=== PATIENT | male | born 1975 | race Caucasian/White ===

== ENCOUNTER 2016-08-14 17:42 | Emergency (ER) | payer OTHER ==
[~2016-08-14 17:42] MED LIST: /HCTZ25TA PO; /IPRA3SP; ALB2.5NEB INH; AMLO5TAB2 PO; ASPI81TA45 PO; ATIV0.5T3 PO; BACL10TA2 PO; BACTRIM DS PO; GABA300C2 PO; IPRA2IN INH; LEVO750T PO; LISI-538 PO; LISI5TAB PO; MEDR4PAK PO; META800T82 PO; NICO4GUM8 PO; NICO4LOZ8 MT; ONDA1TAB15 PO; PERCOCET PO; PRAV80TA2 PO; PRED10TA PO; PROAAER IN; Q PA PO; VALI10TA PO; VALI2TAB PO; ZITH250T PO; [UNRECOGNIZED DRUG - CODE] PO; [UNRECOGNIZED DRUG - CODE] SL; albuterol INH; prednisone PO
[2016-08-14] MEDS ORDERED: HYDROmorphone HCL 1 MG/ML SYRINGE (J1170) As Ordered ONE ×2 (19:55→21:52)
[2016-08-14 20:18] LABS: BASO % 0.4 % (0.0-1.0); EOS # 0.1 K/mm3 (0.0-0.50); EOS % 1.3 % (0.0-3.0); LARGE UNSTAINED CELL # 0.2 K/mm3 (0.0-0.4); LARGE UNSTAINED CELL % 2.5 % (0.0-4.0); LYMPH # 2.2 K/mm3 (1.5-4.5); LYMPH % 24.6 % (24.0-44.0); MEAN CORPUSCULAR HEMOGLOBIN 30.6 pg (27.0-33.0); MEAN CORPUSCULAR HGB CONC 33.4 g/dl (32.0-36.5); MEAN CORPUSCULAR VOLUME 91.5 fl (80.0-96.0); MONO # 0.5 K/mm3 (0.0-0.8); MONO % 5.9 % (0.0-5.0); NEUTROPHILS # 5.8 K/mm3 (1.8-7.7); NEUTROPHILS % 65.3 % (36.0-66.0); PLATELET COUNT, AUTOMATED 201 k/mm3 (150-450); RED CELL DISTRIBUTION WIDTH 13.3 % (11.5-14.5); WHITE BLOOD COUNT 8.9 K/mm3 (4.0-10.0)
[2016-08-14 20:33] LABS: ANION GAP 9 MEQ/L (8-16); BLOOD UREA NITROGEN 13 MG/DL (7-18); CALCIUM LEVEL 9.3 MG/DL (8.5-10.1); CARBON DIOXIDE LEVEL 28 MEQ/L (21-32); CHLORIDE LEVEL 103 MEQ/L (98-107); CREATININE FOR GFR 0.78 MG/DL (0.70-1.30); GLOMERULAR FILTRATION RATE > 60.0 (>60); GLUCOSE, FASTING 109 MG/DL (70-105); POTASSIUM SERUM 3.7 MEQ/L (3.5-5.1); SODIUM LEVEL 140 MEQ/L (136-145)
--- NOTE | 2016-08-14 20:33 | REP ---
AP PORTABLE CHEST: 08/14/2016 at 07:01 PM. Clinical history: Chest pain. Comparison: 04/16/2014 There is a right jugular indwelling catheter with tip in SVC. Lordotic projection limits evaluation of the posterior lower lung zones. Lung centeno are hyperinflated with some basilar fibrotic changes. Heart size magnified by low-level inflation. There is some venous hypertension, however. The underlying fibrosis makes early interstitial edema difficult to exclude. Chronic fibrotic changes are mild, but stable. There is no gross effusion or dense consolidation, but posterior lower lung zones are not well seen and there is some infrahilar increased density bilaterally likely some minor atelectatic change. Airway intact. Aortic calcified somewhat tortuous. Impression: 1. COPD and fibrosis with an indwelling right jugular central catheter. 2. Heart size magnified by portable technique and lordotic projection but there is some venous hypertension now and the underlying fibrosis makes early interstitial edema difficult to exclude. No moo edema, dense consolidation or visible effusion. Signed by Gonzalo Levine MD 08/15/2016 07:18 P
--- NOTE | 2016-08-14 21:36 | ECGEPIP ---
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
--- NOTE | 2016-08-14 23:51 | EDDOCDS ---
Physician Documentation [facility] Name: Jacoby Last Sr Age: 41 yrs Sex: Male : 1975 Arrival Date: 08/14/2016 Time: 17:42 Bed 9 Private MD: Henri Coley S Disposition: 08/14 23:31 I have independently interviewed and examined the patient, and I agree with the mm11 investigation, diagnosis and treatment plan as documented by the Resident. Disposition: 08/14/16 23:31 Discharged to Home/Self Care. Impression: Muscle weakness (generalized), Other chest pain, Chest pain, unspecified. - Condition is Stable. - Discharge Instructions: Nonspecific Chest Pain, Chest Wall Pain, Muscle Cramps and Spasms, Weakness, Chest Wall Pain, [id number], Nonspecific Chest Pain, [id number]-[id number], Muscle Cramps and Spasms, [id number], Weakness, [id number]. - Medication Reconciliation, Local Pharmacy Hours form. - Follow up: Madeleine Ni; When: 1 week; Reason: Recheck today's complaints, Continuance of care, To establish care. [facility]; When: Call to arrange an appointment; Reason: Recheck today's complaints, Continuance of care, To establish care. - Problem is an acute exacerbation. - Symptoms have improved. - Notes: Call Dr. Ni's office for follow up. Return to the ER, if your condition worsens. Call [facility] office to establish Primary Care Physician to follow up on today's visit as well as to establish care for general health. Historical: - Allergies: pcn; Ibuprofen; - Home Meds: 1. Neurontin 900 Oral tab bid (Last dose: 08/14/2016 08:00) 2. baclofen 10 mg Oral tab 4 times per day (Last dose: 08/14/2016 08:00) 3. Plavix 75 mg Oral tab 1 tab once daily (Last dose: 08/14/2016 08:00) 4. Xarelto 20 mg oral tab once daily (Last dose: 08/14/2016 08:00) 5. Nitrostat 0.6 mg SL subl every 5 minutes (Last dose: Unknown) 6. Valium 10 mg Oral tab 2 tab 2 times per day (Last dose: 08/14/2016 08:00) 7. meclizine 25 mg Oral chew once daily (Last dose: 08/14/2016 08:00) 8. Percocet 10-325 mg Oral tab every 6 hours (Last dose: 08/14/2016 08:00) 9. lisinopril-hydrochlorothiazide 20-12.5 mg oral tab once daily (Last dose: 08/14/2016 09:00) - PMHx: guinnain barre; CVA; DE; CAD; kidney disease; COPD; asthma; - PSHx: cardiac stent; right upper chest port; - Social history: Smoking status: Patient uses tobacco products, current every day smoker. Patient/guardian denies using alcohol, street drugs, No barriers to communication noted, The patient speaks fluent Albanian, Speaks appropriately for age, Patient uses alcohol only on a social basis. - Family history: Not pertinent. - : The pt / caregiver states he / she is on anticoagulants: Plavix. Xarelto Home medication list is obtained from the patient, family members. - Exposure Risk Screening:: None identified. Vital Signs: 17:45 BP 135 / 76; Pulse 99; Resp 17; Temp 97.1(T); Pulse Ox 99% on R/A; Weight 181.44 kg / lr2 400.01 lbs (R); Height 6 ft. 3 in. (190.50 cm); 18:16 Pulse 98 MON; Pulse Ox 96% ; cf2 18:16 BP 132 / 78; cf2 18:20 Pulse 96 MON; Pulse Ox 94% ; cf2 18:26 Pulse 96 MON; Pulse Ox 94% ; cf2 19:25 BP 132 / 78; Pulse 101; Resp 18; Temp 98.0; Pulse Ox 94% on R/A; Pain 8/10; cf2 19:55 BP 129 / 71; Pulse 104; Resp 18; Pulse Ox 94% on R/A; Pain 7/10; cf2 20:30 BP 133 / 82; Pulse 106; Resp 18; Pulse Ox 95% on R/A; Pain 5/10; cf2 21:00 BP 134 / 82; Pulse 101; Resp 18; Temp 98.0(O); Pulse Ox 94% ; cf2 21:30 BP 141 / 88; Pulse 99; Resp 18; Pulse Ox 94% on R/A; Pain 7/10; cf2 21:30 BP 132 / 77; Pulse 99; Resp 18; Temp 98.2; Pulse Ox 94% on R/A; Pain 8/10; cf2 23:37 BP 135 / 79; Pulse 94; Resp 18; Temp 98.0; Pulse Ox 95% on R/A; Pain 5/10; cf2 17:45 Body Mass Index 50.00 (181.44 kg, 190.50 cm) lr2 MDM: 18:01 ECG WITH READING ER PHYS+CARDIAG ordered. EDMS 18:46 Sales Inspector/Pulse Ox/q 30 min VS ordered. fg 18:46 IV Saline Lock ordered. fg 18:46 Rhythm Strip to chart ordered. fg 18:46 Undress patient appropriately for examination ordered. fg 18:47 B-Type Natiuretic Peptide Ordered. EDMS 18:47 Basic Metabolic Profile Ordered. EDMS 18:47 CBC with Diff Ordered. EDMS 18:47 Cardiac Injury Profile Ordered. EDMS 18:47 Troponin Ordered. EDMS 18:48 portable chest Ordered. EDMS 19:26 heparin 100units/mL flush (infusaport) 5 ml IVP once; flush first with 10mL of NS gk1 followed by heparin ordered. 19:45 Dilaudid - HYDROmorphone 1 mg IVP once ordered. gk1 20:38 REGULAR+DIET ordered. EDMS 20:43 Financial registration complete. gjb 20:54 Diazepam 1 mg IVP once ordered. gk1 20:55 [facility] Payment Agreement was scanned into [employer] App and attached to record. gjb 20:58 Basic Metabolic Profile Reviewed. gk1 20:58 CBC with Diff Reviewed. gk1 20:58 B-Type Natiuretic Peptide Reviewed. gk1 20:58 Cardiac Injury Profile Reviewed. gk1 20:58 Troponin Reviewed. gk1 21:40 Dilaudid - HYDROmorphone 1 mg IVP once ordered. mm11 21:40 Redraw CIP &Troponin (put time in details section) ordered. mm11 21:40 Repeat EKG (put time details section) ordered. mm11 21:49 Repeat EKG (put time details section) complete. jlm 21:49 Redraw CIP &Troponin (put time in details section) complete. jlm 21:49 CARDIAC INJURY PROFILE Ordered. EDMS 21:49 TROPONIN Ordered. EDMS 21:51 ELECTROCARDIOGRAM ADULT ordered. EDMS 22:54 CARDIAC INJURY PROFILE Reviewed. gk1 22:54 TROPONIN Reviewed. gk1 22:54 EKG-ADULT Reviewed. gk1 22:54 portable chest Reviewed. gk1 23:22 heparin 100units/mL flush (infusaport) 5 ml IVP once; flush first with 10mL of NS gk1 followed by heparin ordered. Administered Medications: 19:59 Drug: heparin 100units/mL flush (infusaport) 5 ml [heparin, porcine (PF) 10 unit/mL cf2 intravenous syringe (5 mL)] Route: IVP; Site: Implantable Access Device; 22:58 Follow up: Response: Pain is decreased cf2 19:59 Drug: Dilaudid - HYDROmorphone 1 mg [hydromorphone 1 mg/mL injection syringe (1 mL)] cf2 Route: IVP; Site: Implantable Access Device; 22:58 Follow up: Response: Pain is decreased cf2 21:00 Drug: Diazepam 1 mg [diazepam 5 mg/mL injection syringe (0.2 mL)] Route: IVP; Site: cf2 Implantable Access Device; 22:58 Follow up: Response: Pain is decreased cf2 21:50 Drug: Dilaudid - HYDROmorphone 1 mg [hydromorphone 1 mg/mL injection syringe (1 mL)] cf2 Route: IVP; Site: Implantable Access Device; 22:57 Follow up: Response: Pain is decreased cf2 23:24 Drug: heparin 100units/mL flush (infusaport) 5 ml [heparin flush (porcine) 100 unit/mL cf2 in 0.9 % sodium chloride IV kit (5 mL)] Route: IVP; Site: Implantable Access Device; Signatures: Dispatcher [employer] EDMS Edgardo Paz DO DO mm11 Arabella Marcano RN RN ttb Rula Lopez, Digital Specialist Unit Shelia Rutherford MD MD fg Beck, Gabriela gjb Familetti-Gonzalez, Christina, RN RN cf2 Ronaldo Heart DO DO gk1 The chart was reviewed and I authenticate all verbal orders and agree with the evaluation and treatment provided.Corrections: (The following items were deleted from the chart) 22:36 21:27 CT Head without contrast+CT ordered. EDMS EDMS Attachments: 20:55 [facility] Payment Agreement gjb MTDD
--- NOTE | 2016-08-14 23:52 | EDDOCDS ---
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 Also has chest pain. infected area noted to left chest/breast. Adult Sepsis Screening: The patient does not have new or worsening altered mentation. Patient's respiratory rate is less than 22. Systolic blood pressure is greater than 100. Patient has a qSOFA score of 0- Negative Sepsis Screen. Suicide/Homicide risk assessment- the patient denies having any suicidal and/or homicidal ideations and does not present with any other emotional, behavioral or mental health complaints. Status: Patient is not a service planner or dependent. Transition of care: patient was not received from another setting of care. 17:49 Acuity: BRIA Level 3 ttb 17:49 Method Of Arrival: Walkin/Carried/Asstd ttb Triage Assessment: 17:58 General: Appears in no apparent distress, well nourished, Behavior is appropriate for ttb age, cooperative, pleasant. Pain: Location: chest, back, legs, "deep tissue pain" Pain currently is 10 out of 10 on a pain scale. HIV screening NA for this visit Offered previously. Neurological: Level of Consciousness is awake, alert. Cardiovascular: Chest pain is described as Pain is 10 out of 10 on a pain scale. Respiratory: Airway is patent Respiratory effort is even, unlabored. Respiratory: Reports cough that is. GI: Reports nausea, vomiting. Derm: Skin is normal. Injury Description: No known injury. 23:39 Respiratory: Onset: The symptoms/episode began/occurred gradually. cf2 Historical: - Allergies: pcn; Ibuprofen; - Home Meds: 1. Neurontin 900 Oral tab bid (Last dose: 08/14/2016 08:00) 2. baclofen 10 mg Oral tab 4 times per day (Last dose: 08/14/2016 08:00) 3. Plavix 75 mg Oral tab 1 tab once daily (Last dose: 08/14/2016 08:00) 4. Xarelto 20 mg oral tab once daily (Last dose: 08/14/2016 08:00) 5. Nitrostat 0.6 mg SL subl every 5 minutes (Last dose: Unknown) 6. Valium 10 mg Oral tab 2 tab 2 times per day (Last dose: 08/14/2016 08:00) 7. meclizine 25 mg Oral chew once daily (Last dose: 08/14/2016 08:00) 8. Percocet 10-325 mg Oral tab every 6 hours (Last dose: 08/14/2016 08:00) 9. lisinopril-hydrochlorothiazide 20-12.5 mg oral tab once daily (Last dose: 08/14/2016 09:00) - PMHx: guinnain barre; CVA; MA; CAD; kidney disease; COPD; asthma; - PSHx: cardiac stent; right upper chest port; - Social history: Smoking status: Patient uses tobacco products, current every day smoker. Patient/guardian denies using alcohol, street drugs, No barriers to communication noted, The patient speaks fluent Nigerian, Speaks appropriately for age, Patient uses alcohol only on a social basis. - Family history: Not pertinent. - : The pt / caregiver states he / she is on anticoagulants: Plavix. Xarelto Home medication list is obtained from the patient, family members. - Exposure Risk Screening:: None identified. Screenin:14 Screening information is obtained from the patient. Fall risk: At risk due to ja5 wheelchair bound. Assistance ADL's: Requires assistance with meal preparation, this assistance is provided by family members, bathing, assistance is provided by family members, dressing, assistance is provided by family members, toileting, assistance is provided by family members, ambulation, assistance is provided by family members, housework, assistance is provided by family members, medication administration, assistance is provided by family members. Abuse/DV Screen: The patient / caregiver reports he/she is: not in a situation that causes fear, pain or injury. Nutritional screening: On no prescribed diet. Advance Directives: Currently, there is a health care proxy, Lianna June, goddaughter . There is no active DNR order. There is no living will. There is an active Power of [employer], Lianna June, goddaughter. home support is adequate. Assessment: 18:19 General: Appears in no apparent distress, Behavior is appropriate for age, cooperative. ja5 Pain: Location: right lateral anterior chest and left lateral anterior chest Pain currently is 10 out of 10 on a pain scale. Neurological: Oriented to person, place, time. Cardiovascular: Capillary refill < 3 seconds Heart tones S1 S2 present Rhythm is sinus rhythm No ectopy. Cardiovascular: Chest pain began 1 hour prior to arrival. Cardiovascular: Edema is 1+ to left ankle and right ankle pitting to left ankle and right ankle. Respiratory: Airway is patent Respiratory effort is even, unlabored, Breath sounds are clear bilaterally. Derm: Skin is intact, Skin is pink, warm & dry. 20:05 Adult Sepsis Screening: The patient does not have new or worsening altered mentation. cf2 Patient's respiratory rate is less than 22. Systolic blood pressure is greater than 100. Patient has a qSOFA score of 0- Negative Sepsis Screen. 21:32 Reassessment: Patient states symptoms have not improved. Patient states no relief in cf2 leg pain. MD made aware. Patient was able to eat a sandwich. . EENT: No deficits noted. GI: No deficits noted. : No deficits noted. Derm: Mid-sternal area with 3cm erythemic area. Patient states he "popped a pimple". Musculoskeletal: No deficits noted. Injury Description: No known injury. Vital Signs: 17:45 BP 135 / 76; Pulse 99; Resp 17; Temp 97.1(T); Pulse Ox 99% on R/A; Weight 181.44 kg lr2 (R); Height 6 ft. 3 in. (190.50 cm); 18:16 Pulse 98 MON; Pulse Ox 96% ; cf2 18:16 BP 132 / 78; cf2 18:20 Pulse 96 MON; Pulse Ox 94% ; cf2 18:26 Pulse 96 MON; Pulse Ox 94% ; cf2 19:25 BP 132 / 78; Pulse 101; Resp 18; Temp 98.0; Pulse Ox 94% on R/A; Pain 8/10; cf2 19:55 BP 129 / 71; Pulse 104; Resp 18; Pulse Ox 94% on R/A; Pain 7/10; cf2 20:30 BP 133 / 82; Pulse 106; Resp 18; Pulse Ox 95% on R/A; Pain 5/10; cf2 21:00 BP 134 / 82; Pulse 101; Resp 18; Temp 98.0(O); Pulse Ox 94% ; cf2 21:30 BP 141 / 88; Pulse 99; Resp 18; Pulse Ox 94% on R/A; Pain 7/10; cf2 21:30 BP 132 / 77; Pulse 99; Resp 18; Temp 98.2; Pulse Ox 94% on R/A; Pain 8/10; cf2 23:37 BP 135 / 79; Pulse 94; Resp 18; Temp 98.0; Pulse Ox 95% on R/A; Pain 5/10; cf2 17:45 Body Mass Index 50.00 (181.44 kg, 190.50 cm) lr2 Vitals: 17:45 Log In Time: August 14, 2016 at 17:42. lr2 ED Course: 17:44 Patient visited by Milady Tate. lr2 17:44 Henri Coley is Private Physician. lr2 17:44 Patient moved to Waiting lr2 17:45 Patient moved to Pre RCE lr2 17:52 Triage Initiated ttb 18:00 Christi Colbert,RAIN is Primary Nurse. ttb 18:00 Renetta Schmid,RAIN is Primary Nurse. ttb 18:00 Patient moved to 9 ttb 18:16 No procedures done that require assistance. cf2 18:19 EKG done. (by ED staff). Reviewed by Shelia Dela Cruz MD. dem1 18:22 Patient visited by Renetta Schmid,RAIN. 5 18:23 Patient visited by Ansley Alarcon. dem1 19:08 Primary Nurse role handed off by Christi Colbert,RAIN cf2 19:08 Gely Anderson,RN is Primary Nurse. cf2 19:08 Patient visited by Gely Anderson,RAIN. cf2 19:09 Ronaldo Heart DO is PHCP. gk1 19:09 Edgardo Paz DO is Attending Physician. gk1 19:10 Ronaldo Heart DO is PHCP. mm11 19:41 Patient visited by Gely Anderson,RAIN. cf2 20:00 B-Type Natiuretic Peptide Sent. cf2 20:00 Basic Metabolic Profile Sent. cf2 20:00 CBC with Diff Sent. cf2 20:00 Cardiac Injury Profile Sent. cf2 20:00 Troponin Sent. cf2 20:05 The patient / caregiver is instructed regarding the plan of care and ED course. Patient cf2 has correct armband on for positive identification. Placed in gown. Bed in low position. Call light in reach. Side rails up X 1. Side rails up X2. Adult w/ patient. mechanic senior on. Pulse ox on. Cardiac monitoring not applicable on this patient. Property :Personal belongings accompany Pt. Door closed. Noise minimized. Visitors limited. Lights dimmed. Moved to private room. Verbal reassurance given. Warm blanket given. Pillow given. Head of bed elevated. Diet: Patient is NPO. 20:05 Accessed using accessed w/ # 20 Esquivel needle, sterile technique, per hospital protocol. cf2 InfusaPort in patient's right chest wall. Clean & dry. Dressing intact. Good blood return. Flushes easily. 20:11 Patient visited by Gely Anderson RN. cf2 20:15 Patient visited by Gely Anderson RN. cf2 20:15 Patient visited by Ronaldo Heart DO. gk1 20:15 Patient visited by Ronaldo Heart DO. gk1 20:43 Patient visited by Gely Anderson RN. cf2 20:53 Patient visited by Ronaldo Heart DO. gk1 20:55 [facility] Payment Agreement was scanned into [employer] and attached to record. gjb 21:23 portable chest Returned. EDMS 21:32 Patient visited by Gely Anderson RN. cf2 21:32 Patient visited by Gely Anderson RN. cf2 22:01 TROPONIN Sent. cf2 22:01 CARDIAC INJURY PROFILE Sent. cf2 22:02 Patient visited by Gely Anderson RN. cf2 22:04 Patient visited by Ken Ratliff PCA. jmv 22:04 EKG done. (by ED staff). Reviewed by Edgardo Paz DO. jmv 22:17 EKG-ADULT Returned. EDMS 22:39 Patient visited by Gely Anderson RN. cf2 22:51 Patient visited by Gely Anderson RN. cf2 22:53 Patient visited by Ronaldo Heart DO. gk1 23:15 Patient visited by Ronaldo Heart DO. gk1 23:21 Patient visited by Ronaldo Heart DO. gk1 23:30 Madeleine Ni is Referral Physician. gk1 23:30 [facility] is Referral Physician. gk1 23:36 Patient visited by Gely Anderson RN. cf2 23:37 Discontinued Infusaport discontinued. Dressing placed. No bleeding noted. Patient cf2 tolerated procedure well. 23:50 Patient visited by Gely Anderosn RN. cf2 Administered Medications: 19:59 Drug: heparin 100units/mL flush (infusaport) 5 ml [heparin, porcine (PF) 10 unit/mL cf2 intravenous syringe (5 mL)] Route: IVP; Site: Implantable Access Device; 22:58 Follow up: Response: Pain is decreased cf2 19:59 Drug: Dilaudid - HYDROmorphone 1 mg [hydromorphone 1 mg/mL injection syringe (1 mL)] cf2 Route: IVP; Site: Implantable Access Device; 22:58 Follow up: Response: Pain is decreased cf2 21:00 Drug: Diazepam 1 mg [diazepam 5 mg/mL injection syringe (0.2 mL)] Route: IVP; Site: cf2 Implantable Access Device; 22:58 Follow up: Response: Pain is decreased cf2 21:50 Drug: Dilaudid - HYDROmorphone 1 mg [hydromorphone 1 mg/mL injection syringe (1 mL)] cf2 Route: IVP; Site: Implantable Access Device; 22:57 Follow up: Response: Pain is decreased cf2 23:24 Drug: heparin 100units/mL flush (infusaport) 5 ml [heparin flush (porcine) 100 unit/mL cf2 in 0.9 % sodium chloride IV kit (5 mL)] Route: IVP; Site: Implantable Access Device; Order Results: Lab Order: B-Type Natiuretic Peptide; SPEC'M 08/14/16 19:50 Test: BRAIN NATRIURETIC PEPTIDE; Value: 21.1; Range: <100; Units: PG/ML; Status: F Lab Order: Basic Metabolic Profile; SPEC08/14/16 19:50 Test: GLUCOSE, FASTING; Value: 109; Range: 70-105; Abnormal: Above high normal; Units: MG/DL; Status: F Test: BLOOD UREA NITROGEN; Value: 13; Range: 7-18; Units: MG/DL; Status: F Test: CREATININE FOR GFR; Value: 0.78; Range: 0.70-1.30; Units: MG/DL; Status: F Test: GLOMERULAR FILTRATION RATE; Value: > 60.0; Range: >60; Status: F Test: SODIUM LEVEL; Value: 140; Range: 136-145; Units: MEQ/L; Status: F Test: POTASSIUM SERUM; Value: 3.7; Range: 3.5-5.1; Units: MEQ/L; Status: F Test: CHLORIDE LEVEL; Value: 103; Range: 98-107; Units: MEQ/L; Status: F Test: CARBON DIOXIDE LEVEL; Value: 28; Range: 21-32; Units: MEQ/L; Status: F Test: ANION GAP; Value: 9; Range: 8-16; Units: MEQ/L; Status: F Test: CALCIUM LEVEL; Value: 9.3; Range: 8.5-10.1; Units: MG/DL; Status: F Test Note: ; Units are mL/min/1.73 m2 Chronic Kidney Disease Staging per NKF: Stage I & II GFR >=60 Normal to Mildly Decreased Stage III GFR 30-59 Moderately Decreased Stage IV GFR 15-29 Severely Decreased Stage V GFR <15 Very Little GFR Left ESRD GFR <15 on TRIM MOUNTER Lab Order: CBC with Diff; SPEC'08/14/16 19:50 Test: WHITE BLOOD COUNT; Value: 8.9; Range: 4.0-10.0; Units: K/mm3; Status: F Test: RED BLOOD COUNT; Value: 4.27; Range: 4.30-6.10; Abnormal: Below low normal; Units: M/mm3; Status: F Test: HEMOGLOBIN; Value: 13.1; Range: 14.0-18.0; Abnormal: Below low normal; Units: g/dl; Status: F Test: HEMATOCRIT; Value: 39.1; Range: 42.0-52.0; Abnormal: Below low normal; Units: %; Status: F Test: MEAN CORPUSCULAR VOLUME; Value: 91.5; Range: 80.0-96.0; Units: fl; Status: F Test: MEAN CORPUSCULAR HEMOGLOBIN; Value: 30.6; Range: 27.0-33.0; Units: pg; Status: F Test: MEAN CORPUSCULAR HGB CONC; Value: 33.4; Range: 32.0-36.5; Units: g/dl; Status: F Test: RED CELL DISTRIBUTION WIDTH; Value: 13.3; Range: 11.5-14.5; Units: %; Status: F Test: PLATELET COUNT, AUTOMATED; Value: 201; Range: 150-450; Units: k/mm3; Status: F Test: NEUTROPHILS %; Value: 65.3; Range: 36.0-66.0; Units: %; Status: F Test: LYMPH %; Value: 24.6; Range: 24.0-44.0; Units: %; Status: F Test: MONO %; Value: 5.9; Range: 0.0-5.0; Abnormal: Above high normal; Units: %; Status: F Test: EOS %; Value: 1.3; Range: 0.0-3.0; Units: %; Status: F Test: BASO %; Value: 0.4; Range: 0.0-1.0; Units: %; Status: F Test: LARGE UNSTAINED CELL %; Value: 2.5; Range: 0.0-4.0; Units: %; Status: F Test: NEUTROPHILS #; Value: 5.8; Range: 1.8-7.7; Units: K/mm3; Status: F Test: LYMPH #; Value: 2.2; Range: 1.5-4.5; Units: K/mm3; Status: F Test: MONO #; Value: 0.5; Range: 0.0-0.8; Units: K/mm3; Status: F Test: EOS #; Value: 0.1; Range: 0.0-0.50; Units: K/mm3; Status: F Test: BASO #; Value: 0.0; Range: 0.0-0.2; Units: K/mm3; Status: F Test: LARGE UNSTAINED CELL #; Value: 0.2; Range: 0.0-0.4; Units: K/mm3; Status: F Lab Order: Cardiac Injury Profile; [facility] 08/14/16 19:50 Test: CPK CREATINE PHOSPHOKINASE; Value: 85; Range: 39-308; Units: U/L; Status: F Test: CK-MB VALUE MASS; Value: 2.3; Range: 0.0-3.6; Units: NG/ML; Status: F Test: MB/CK RELATIVE INDEX; Value: 2.70; Range: < OR =4; Status: F Test Note: ; DIAGNOSIS CRITERIA MMB ng/ml Relative Index (RI) NON-AMI < or = 5 N/A [place]ONE > 5 < or = 4 AMI > 5 > 4 Lab Order: Troponin; [facility] 08/14/16 19:50 Test: TROPONIN I; Value: < 0.02; Range: < 0.10; Units: NG/ML; Status: F Test Note: ; Troponin I Reference Interval for [employer] LOCI: 99th Percentile= 0.00-0.045 ng/ml Risk Stratification: <= 0.10 ng/ml Decreased Risk for Adverse Clinical Events. 0.10-1.50 ng/ml Increased Risk for Adverse Clinical Events. Evaluation of additional criterion and/or repeat testing in 2-6 hours is suggested to rule out myocardial damage. >= 1.50 ng/ml Indicative of Myocardial Injury. Lab Order: CARDIAC INJURY PROFILE; [facility] 08/14/16 21:58 Test: CPK CREATINE PHOSPHOKINASE; Value: 88; Range: 39-308; Units: U/L; Status: F Test: CK-MB VALUE MASS; Value: 1.6; Range: 0.0-3.6; Units: NG/ML; Status: F Test: MB/CK RELATIVE INDEX; Value: 1.81; Range: < OR =4; Status: F Test Note: ; DIAGNOSIS CRITERIA MMB ng/ml Relative Index (RI) NON-AMI < or = 5 N/A [place] ZONE > 5 < or = 4 AMI > 5 > 4 Lab Order: TROPONIN; [facility] 08/14/16 21:58 Test: TROPONIN I; Value: < 0.02; Range: < 0.10; Units: NG/ML; Status: F Test Note: ; Troponin I Reference Interval for [employer] [place] LOCI: 99th Percentile= 0.00-0.045 ng/ml Risk Stratification: <= 0.10 ng/ml Decreased Risk for Adverse Clinical Events. 0.10-1.50 ng/ml Increased Risk for Adverse Clinical Events. Evaluation of additional criterion and/or repeat testing in 2-6 hours is suggested to rule out myocardial damage. >= 1.50 ng/ml Indicative of Myocardial Injury. Radiology Order: EKG-ADULT Test: EKG-ADULT REASON FOR EXAMINATION: Chest Pain; Stationary ECG Study; [facility] - ED; ; Test Date: 2016-08-14; Pat Name: JEAN PAUL FARAH SR Department:; Room: -; Gender: M Multimedia Services Manager: romain; : 1975 Requested By: SHELIA Storey; Order Number: [id number] Reading MD: Mallory Kearns; Measurements; Intervals [place]; Rate: 97 P: 46; WI: 163 QRS: 23; QRSD: 79 T: 43; QT: 338; QTc: 431; Interpretive Statements; SINUS RHYTHM; DELAYED R PROGRESSION; SIMILAR 03/05/14; Electronically Signed On 08-14-2016 21:36:46 EST by Mallory Kearns; Radiology Order: portable chest Test: portable chest REASON FOR EXAMINATION: Chest Pain; AP PORTABLE CHEST: 08/14/2016 at 07:01 PM.; ; Clinical history: Chest pain.; ; Comparison: 04/16/2014; ; There is a right jugular indwelling catheter with tip in SVC. Lordotic projection; limits evaluation of the posterior lower lung zones. Lung centeno are; hyperinflated with some basilar fibrotic changes. Heart size magnified by; low-level inflation. There is some venous hypertension, however. The underlying; fibrosis makes early interstitial edema difficult to exclude. Chronic fibrotic; changes are mild, but stable. There is no gross effusion or dense consolidation,; but posterior lower lung zones are not well seen and there is some infrahilar; increased density bilaterally likely some minor atelectatic change.; ; Airway intact. Aortic calcified somewhat tortuous.; ; Impression:; 1. COPD and fibrosis with an indwelling right jugular central catheter.; 2. Heart size magnified by portable technique and lordotic projection but there; is some venous hypertension now and the underlying fibrosis makes early; interstitial edema difficult to exclude. No moo edema, dense consolidation or; visible effusion.; ; ; ; ; Unreviewed; Outcome: 23:31 Discharge ordered by Provider. gk1 23:37 Discharge Assessment: Patient awake, alert and oriented x 3. No cognitive and/or cf2 functional deficits noted. Patient verbalized understanding of disposition instructions. Patient awake and alert. Oriented to person, place and time. patient administered narcotics - yes. The following High Risk Discharge criteria are identified: None. Discharged to home via wheelchair, with family. Condition: stable. Discharge instructions given to patient, Instructed on discharge instructions, follow up and referral plans. Demonstrated understanding of instructions. No special radiology studies were completed. 23:50 Patient left the ED. cf2 Signatures: Dispatcher [employer] EDMS Edgardo Paz, DO DO mm11 Ansley Alarcon dem1 Arabella Marcano, RN RN ttb Shiloh Mae Christina,RN RN cf2 Ken Ratliff, LABORER [employer] LABORER [employer] Ronaldo Baires, DO DO gk1 Renetta Schmid,RN RN Milady Griffin2 Corrections: (The following items were deleted from the chart) 18:05 17:49 Presenting complaint: Patient states: palpitations, weakness, legs tingling, and ttb hand tingling ---" I think I'm having another episode of guillaine barre". Also has chest pain. ttb MTDD
--- NOTE | 2016-08-15 08:53 | ECGEPIP ---
Stationary ECG Study [facility] Test Date: 2016-08-14 Pat Name: JEAN PAUL FARAH SR Department: Room: - Gender: M Phlebotomy Technologist: michelle : 1975 Requested By: EMERGENCY ROOM Order Number: [id number] Reading MD: Martha Esteves Measurements Intervals [place] Rate: 96 P: 55 [place]: 168 QRS: 25 QRSD: 81 T: 39 QT: 337 QTc: 426 Interpretive Statements NORMAL SINUS RHYTHM STABLE C/W 08/14/16 Electronically Signed On 08-15-2016 8:52:43 EST by Martha Esteves
--- NOTE | 2016-08-17 00:51 | EDDOCDS ---
Physician Documentation [facility] Name: Jacoby Last Sr Age: 41 yrs Sex: Male : 1975 Arrival Date: 08/14/2016 Time: 17:42 Bed 9 Private MD: Henri Coley S Disposition: 08/14 23:31 I have independently interviewed and examined the patient, and I agree with the mm11 investigation, diagnosis and treatment plan as documented by the Resident. Disposition: 08/14/16 23:31 Discharged to Home/Self Care. Impression: Muscle weakness (generalized), Other chest pain, Chest pain, unspecified. - Condition is Stable. - Discharge Instructions: Nonspecific Chest Pain, Chest Wall Pain, Muscle Cramps and Spasms, Weakness, Chest Wall Pain, [id number], Nonspecific Chest Pain, Qayb-[id number], Muscle Cramps and Spasms, [id number], Weakness, [id number]. - Medication Reconciliation, Local Pharmacy Hours form. - Follow up: Madeleine Ni; When: 1 week; Reason: Recheck today's complaints, Continuance of care, To establish care. [facility]; When: Call to arrange an appointment; Reason: Recheck today's complaints, Continuance of care, To establish care. - Problem is an acute exacerbation. - Symptoms have improved. - Notes: Call Dr. Ni's office for follow up. Return to the ER, if your condition worsens. Call [facility] office to establish Primary Care Physician to follow up on today's visit as well as to establish care for general health. Historical: - Allergies: pcn; Ibuprofen; - Home Meds: 1. Neurontin 900 Oral tab bid (Last dose: 08/14/2016 08:00) 2. baclofen 10 mg Oral tab 4 times per day (Last dose: 08/14/2016 08:00) 3. Plavix 75 mg Oral tab 1 tab once daily (Last dose: 08/14/2016 08:00) 4. Xarelto 20 mg oral tab once daily (Last dose: 08/14/2016 08:00) 5. Nitrostat 0.6 mg SL subl every 5 minutes (Last dose: Unknown) 6. Valium 10 mg Oral tab 2 tab 2 times per day (Last dose: 08/14/2016 08:00) 7. meclizine 25 mg Oral chew once daily (Last dose: 08/14/2016 08:00) 8. Percocet 10-325 mg Oral tab every 6 hours (Last dose: 08/14/2016 08:00) 9. lisinopril-hydrochlorothiazide 20-12.5 mg oral tab once daily (Last dose: 08/14/2016 09:00) - PMHx: guinnain barre; CVA; [place]; CAD; kidney disease; COPD; asthma; - PSHx: cardiac stent; right upper chest port; - Social history: Smoking status: Patient uses tobacco products, current every day smoker. Patient/guardian denies using alcohol, street drugs, No barriers to communication noted, The patient speaks fluent [place], Speaks appropriately for age, Patient uses alcohol only on a social basis. - Family history: Not pertinent. - : The pt / caregiver states he / she is on anticoagulants: Plavix. Xarelto Home medication list is obtained from the patient, family members. - Exposure Risk Screening:: None identified. Vital Signs: 17:45 BP 135 / 76; Pulse 99; Resp 17; Temp 97.1(T); Pulse Ox 99% on R/A; Weight 181.44 kg / lr2 400.01 lbs (R); Height 6 ft. 3 in. (190.50 cm); 18:16 Pulse 98 MON; Pulse Ox 96% ; cf2 18:16 BP 132 / 78; cf2 18:20 Pulse 96 MON; Pulse Ox 94% ; cf2 18:26 Pulse 96 MON; Pulse Ox 94% ; cf2 19:25 BP 132 / 78; Pulse 101; Resp 18; Temp 98.0; Pulse Ox 94% on R/A; Pain 8/10; cf2 19:55 BP 129 / 71; Pulse 104; Resp 18; Pulse Ox 94% on R/A; Pain 7/10; cf2 20:30 BP 133 / 82; Pulse 106; Resp 18; Pulse Ox 95% on R/A; Pain 5/10; cf2 21:00 BP 134 / 82; Pulse 101; Resp 18; Temp 98.0(O); Pulse Ox 94% ; cf2 21:30 BP 141 / 88; Pulse 99; Resp 18; Pulse Ox 94% on R/A; Pain 7/10; cf2 21:30 BP 132 / 77; Pulse 99; Resp 18; Temp 98.2; Pulse Ox 94% on R/A; Pain 8/10; cf2 23:37 BP 135 / 79; Pulse 94; Resp 18; Temp 98.0; Pulse Ox 95% on R/A; Pain 5/10; cf2 17:45 Body Mass Index 50.00 (181.44 kg, 190.50 cm) lr2 MDM: 18:01 ECG WITH READING ER PHYS+CARDIAG ordered. EDMS 18:46 Import Manager/Pulse Ox/q 30 min VS ordered. fg 18:46 IV Saline Lock ordered. fg 18:46 Rhythm Strip to chart ordered. fg 18:46 Undress patient appropriately for examination ordered. fg 18:47 B-Type Natiuretic Peptide Ordered. EDMS 18:47 Basic Metabolic Profile Ordered. EDMS 18:47 CBC with Diff Ordered. EDMS 18:47 Cardiac Injury Profile Ordered. EDMS 18:47 Troponin Ordered. EDMS 18:48 portable chest Ordered. EDMS 19:26 heparin 100units/mL flush (infusaport) 5 ml IVP once; flush first with 10mL of NS gk1 followed by heparin ordered. 19:45 Dilaudid - HYDROmorphone 1 mg IVP once ordered. gk1 20:38 REGULAR+DIET ordered. EDMS 20:43 Financial registration complete. gjb 20:54 Diazepam 1 mg IVP once ordered. gk1 20:55 [facility] Payment Agreement was scanned into [employer] and attached to record. gjb 20:58 Basic Metabolic Profile Reviewed. gk1 20:58 CBC with Diff Reviewed. gk1 20:58 B-Type Natiuretic Peptide Reviewed. gk1 20:58 Cardiac Injury Profile Reviewed. gk1 20:58 Troponin Reviewed. gk1 21:40 Dilaudid - HYDROmorphone 1 mg IVP once ordered. mm11 21:40 Redraw CIP &Troponin (put time in details section) ordered. mm11 21:40 Repeat EKG (put time details section) ordered. mm11 21:49 Repeat EKG (put time details section) complete. jlm 21:49 Redraw CIP &Troponin (put time in details section) complete. jlm 21:49 CARDIAC INJURY PROFILE Ordered. EDMS 21:49 TROPONIN Ordered. EDMS 21:51 ELECTROCARDIOGRAM ADULT ordered. EDMS 22:54 CARDIAC INJURY PROFILE Reviewed. gk1 22:54 TROPONIN Reviewed. gk1 22:54 EKG-ADULT Reviewed. gk1 22:54 portable chest Reviewed. gk1 23:22 heparin 100units/mL flush (infusaport) 5 ml IVP once; flush first with 10mL of NS gk1 followed by heparin ordered. 08/15 10:16 T-Sheet-- Draft Copy was scanned into [employer] and attached to record. 15:40 ECG/EKG was scanned into [employer] and attached to record. gb Administered Medications: 08/14 19:59 Drug: heparin 100units/mL flush (infusaport) 5 ml [heparin, porcine (PF) 10 unit/mL cf2 intravenous syringe (5 mL)] Route: IVP; Site: Implantable Access Device; 22:58 Follow up: Response: Pain is decreased cf2 19:59 Drug: Dilaudid - HYDROmorphone 1 mg [hydromorphone 1 mg/mL injection syringe (1 mL)] cf2 Route: IVP; Site: Implantable Access Device; 22:58 Follow up: Response: Pain is decreased cf2 21:00 Drug: Diazepam 1 mg [diazepam 5 mg/mL injection syringe (0.2 mL)] Route: IVP; Site: cf2 Implantable Access Device; 22:58 Follow up: Response: Pain is decreased cf2 21:50 Drug: Dilaudid - HYDROmorphone 1 mg [hydromorphone 1 mg/mL injection syringe (1 mL)] cf2 Route: IVP; Site: Implantable Access Device; 22:57 Follow up: Response: Pain is decreased cf2 23:24 Drug: heparin 100units/mL flush (infusaport) 5 ml [heparin flush (porcine) 100 unit/mL cf2 in 0.9 % sodium chloride IV kit (5 mL)] Route: IVP; Site: Implantable Access Device; Signatures: Dispatcher [employer] EDMS Delia James, Reg Reg gb Edgardo Paz, DO mm11 Arabella Marcano, RAIN RN ttb Rula Lopez, General Purchasing Agent Unit jlm Shelia Dela Cruz MD MD fg Beck, Gabriela gjb Familetti-Gonzalez, Christina, RN RN cf2 Una, Ronaldo, DO DO gk1 The chart was reviewed and I authenticate all verbal orders and agree with the evaluation and treatment provided.Corrections: (The following items were deleted from the chart) 22:36 21:27 CT Head without contrast+CT ordered. EDMS EDMS Attachments: 20:55 [facility] Payment Agreement gjb 08/15 10:16 T-Sheet-- Draft Copy gb 15:40 ECG/EKG gb Chart Complete MTDD
--- NOTE | 2016-08-17 00:51 | EDDOCDS ---
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 Also has chest pain. infected area noted to left chest/breast. Adult Sepsis Screening: The patient does not have new or worsening altered mentation. Patient's respiratory rate is less than 22. Systolic blood pressure is greater than 100. Patient has a qSOFA score of 0- Negative Sepsis Screen. Suicide/Homicide risk assessment- the patient denies having any suicidal and/or homicidal ideations and does not present with any other emotional, behavioral or mental health complaints. Status: Patient is not a auto servicer or dependent. Transition of care: patient was not received from another setting of care. 17:49 Acuity: BRIA Level 3 ttb 17:49 Method Of Arrival: Walkin/Carried/Asstd ttb Triage Assessment: 17:58 General: Appears in no apparent distress, well nourished, Behavior is appropriate for ttb age, cooperative, pleasant. Pain: Location: chest, back, legs, "deep tissue pain" Pain currently is 10 out of 10 on a pain scale. HIV screening NA for this visit Offered previously. Neurological: Level of Consciousness is awake, alert. Cardiovascular: Chest pain is described as Pain is 10 out of 10 on a pain scale. Respiratory: Airway is patent Respiratory effort is even, unlabored. Respiratory: Reports cough that is. GI: Reports nausea, vomiting. Derm: Skin is normal. Injury Description: No known injury. 23:39 Respiratory: Onset: The symptoms/episode began/occurred gradually. cf2 Historical: - Allergies: pcn; Ibuprofen; - Home Meds: 1. Neurontin 900 Oral tab bid (Last dose: 08/14/2016 08:00) 2. baclofen 10 mg Oral tab 4 times per day (Last dose: 08/14/2016 08:00) 3. Plavix 75 mg Oral tab 1 tab once daily (Last dose: 08/14/2016 08:00) 4. Xarelto 20 mg oral tab once daily (Last dose: 08/14/2016 08:00) 5. Nitrostat 0.6 mg SL subl every 5 minutes (Last dose: Unknown) 6. Valium 10 mg Oral tab 2 tab 2 times per day (Last dose: 08/14/2016 08:00) 7. meclizine 25 mg Oral chew once daily (Last dose: 08/14/2016 08:00) 8. Percocet 10-325 mg Oral tab every 6 hours (Last dose: 08/14/2016 08:00) 9. lisinopril-hydrochlorothiazide 20-12.5 mg oral tab once daily (Last dose: 08/14/2016 09:00) - PMHx: guinnain barre; CVA; [place]; CAD; kidney disease; COPD; asthma; - PSHx: cardiac stent; right upper chest port; - Social history: Smoking status: Patient uses tobacco products, current every day smoker. Patient/guardian denies using alcohol, street drugs, No barriers to communication noted, The patient speaks fluent [place], Speaks appropriately for age, Patient uses alcohol only on a social basis. - Family history: Not pertinent. - : The pt / caregiver states he / she is on anticoagulants: Plavix. Xarelto Home medication list is obtained from the patient, family members. - Exposure Risk Screening:: None identified. Screenin:14 Screening information is obtained from the patient. Fall risk: At risk due to ja5 wheelchair bound. Assistance ADL's: Requires assistance with meal preparation, this assistance is provided by family members, bathing, assistance is provided by family members, dressing, assistance is provided by family members, toileting, assistance is provided by family members, ambulation, assistance is provided by family members, housework, assistance is provided by family members, medication administration, assistance is provided by family members. Abuse/DV Screen: The patient / caregiver reports he/she is: not in a situation that causes fear, pain or injury. Nutritional screening: On no prescribed diet. Advance Directives: Currently, there is a health care proxy, Lianna June, goddaughter . There is no active DNR order. There is no living will. There is an active Power of Personal Driver, Lianna June, goddaughter. home support is adequate. Assessment: 18:19 General: Appears in no apparent distress, Behavior is appropriate for age, cooperative. ja5 Pain: Location: right lateral anterior chest and left lateral anterior chest Pain currently is 10 out of 10 on a pain scale. Neurological: Oriented to person, place, time. Cardiovascular: Capillary refill < 3 seconds Heart tones S1 S2 present Rhythm is sinus rhythm No ectopy. Cardiovascular: Chest pain began 1 hour prior to arrival. Cardiovascular: Edema is 1+ to left ankle and right ankle pitting to left ankle and right ankle. Respiratory: Airway is patent Respiratory effort is even, unlabored, Breath sounds are clear bilaterally. Derm: Skin is intact, Skin is pink, warm & dry. 20:05 Adult Sepsis Screening: The patient does not have new or worsening altered mentation. cf2 Patient's respiratory rate is less than 22. Systolic blood pressure is greater than 100. Patient has a qSOFA score of 0- Negative Sepsis Screen. 21:32 Reassessment: Patient states symptoms have not improved. Patient states no relief in cf2 leg pain. MD made aware. Patient was able to eat a sandwich. . EENT: No deficits noted. GI: No deficits noted. : No deficits noted. Derm: Mid-sternal area with 3cm erythemic area. Patient states he "popped a pimple". Musculoskeletal: No deficits noted. Injury Description: No known injury. Vital Signs: 17:45 BP 135 / 76; Pulse 99; Resp 17; Temp 97.1(T); Pulse Ox 99% on R/A; Weight 181.44 kg lr2 (R); Height 6 ft. 3 in. (190.50 cm); 18:16 Pulse 98 MON; Pulse Ox 96% ; cf2 18:16 BP 132 / 78; cf2 18:20 Pulse 96 MON; Pulse Ox 94% ; cf2 18:26 Pulse 96 MON; Pulse Ox 94% ; cf2 19:25 BP 132 / 78; Pulse 101; Resp 18; Temp 98.0; Pulse Ox 94% on R/A; Pain 8/10; cf2 19:55 BP 129 / 71; Pulse 104; Resp 18; Pulse Ox 94% on R/A; Pain 7/10; cf2 20:30 BP 133 / 82; Pulse 106; Resp 18; Pulse Ox 95% on R/A; Pain 5/10; cf2 21:00 BP 134 / 82; Pulse 101; Resp 18; Temp 98.0(O); Pulse Ox 94% ; cf2 21:30 BP 141 / 88; Pulse 99; Resp 18; Pulse Ox 94% on R/A; Pain 7/10; cf2 21:30 BP 132 / 77; Pulse 99; Resp 18; Temp 98.2; Pulse Ox 94% on R/A; Pain 8/10; cf2 23:37 BP 135 / 79; Pulse 94; Resp 18; Temp 98.0; Pulse Ox 95% on R/A; Pain 5/10; cf2 17:45 Body Mass Index 50.00 (181.44 kg, 190.50 cm) lr2 Vitals: 17:45 Log In Time: August 14, 2016 at 17:42. lr2 ED Course: 17:44 Patient visited by Milady Tate. lr2 17:44 Henri Coley is Private Physician. lr2 17:44 Patient moved to Waiting lr2 17:45 Patient moved to Pre RCE lr2 17:52 Triage Initiated ttb 18:00 Christi Colbert,RAIN is Primary Nurse. ttb 18:00 Renetta Schmid,RAIN is Primary Nurse. ttb 18:00 Patient moved to 9 ttb 18:16 No procedures done that require assistance. cf2 18:19 EKG done. (by ED staff). Reviewed by Shelia Dela Cruz MD. dem1 18:22 Patient visited by Renetta Schmid,RAIN. 5 18:23 Patient visited by Ansley Alarcon. dem1 19:08 Primary Nurse role handed off by Christi Colbert,RAIN cf2 19:08 Gely Anderson,RN is Primary Nurse. cf2 19:08 Patient visited by Gely Anderson,RAIN. cf2 19:09 Ronaldo Heart DO is PHCP. gk1 19:09 Edgardo Paz DO is Attending Physician. gk1 19:10 Ronaldo Heart DO is PHCP. mm11 19:41 Patient visited by Gely Anderson,RAIN. cf2 20:00 B-Type Natiuretic Peptide Sent. cf2 20:00 Basic Metabolic Profile Sent. cf2 20:00 CBC with Diff Sent. cf2 20:00 Cardiac Injury Profile Sent. cf2 20:00 Troponin Sent. cf2 20:05 The patient / caregiver is instructed regarding the plan of care and ED course. Patient cf2 has correct armband on for positive identification. Placed in gown. Bed in low position. Call light in reach. Side rails up X 1. Side rails up X2. Adult w/ patient. press manager on. Pulse ox on. Cardiac monitoring not applicable on this patient. Property :Personal belongings accompany Pt. Door closed. Noise minimized. Visitors limited. Lights dimmed. Moved to private room. Verbal reassurance given. Warm blanket given. Pillow given. Head of bed elevated. Diet: Patient is NPO. 20:05 Accessed using accessed w/ # 20 Esquivel needle, sterile technique, per hospital protocol. cf2 InfusaPort in patient's right chest wall. Clean & dry. Dressing intact. Good blood return. Flushes easily. 20:11 Patient visited by Gely Anderson RN. cf2 20:15 Patient visited by Gely Anderson RN. cf2 20:15 Patient visited by Ronaldo Heart DO. gk1 20:15 Patient visited by Ronaldo Heart DO. gk1 20:43 Patient visited by Gely Anderson RN. cf2 20:53 Patient visited by Ronaldo Heart DO. gk1 20:55 [facility] Payment Agreement was scanned into [employer] and attached to record. gjb 21:23 portable chest Returned. EDMS 21:32 Patient visited by Gely Anderson RN. cf2 21:32 Patient visited by Gely Anderson RN. cf2 22:01 TROPONIN Sent. cf2 22:01 CARDIAC INJURY PROFILE Sent. cf2 22:02 Patient visited by Gely Anderson RN. cf2 22:04 Patient visited by Ken Ratliff PCA. jmv 22:04 EKG done. (by ED staff). Reviewed by Edgardo Paz DO. jmv 22:17 EKG-ADULT Returned. EDMS 22:39 Patient visited by Gely Anderson RN. cf2 22:51 Patient visited by Gely Anderson RN. cf2 22:53 Patient visited by Ronaldo Heart DO. gk1 23:15 Patient visited by Ronaldo Heart DO. gk1 23:21 Patient visited by Ronaldo Heart DO. gk1 23:30 Madeleine Ni is Referral Physician. gk1 23:30 [facility] is Referral Physician. gk1 23:36 Patient visited by Gely Anderson RN. cf2 23:37 Discontinued Infusaport discontinued. Dressing placed. No bleeding noted. Patient cf2 tolerated procedure well. 23:50 Patient visited by Gely Anderson RN. cf2 08/15 09:17 ELECTROCARDIOGRAM ADULT Returned. EDMS 10:16 T-Sheet-- Draft Copy was scanned into [employer] and attached to record. gb 15:40 ECG/EKG was scanned into [employer] and attached to record. gb 19:39 portable chest Returned. EDMS Administered Medications: 08/14 19:59 Drug: heparin 100units/mL flush (infusaport) 5 ml [heparin, porcine (PF) 10 unit/mL cf2 intravenous syringe (5 mL)] Route: IVP; Site: Implantable Access Device; 22:58 Follow up: Response: Pain is decreased cf2 19:59 Drug: Dilaudid - HYDROmorphone 1 mg [hydromorphone 1 mg/mL injection syringe (1 mL)] cf2 Route: IVP; Site: Implantable Access Device; 22:58 Follow up: Response: Pain is decreased cf2 21:00 Drug: Diazepam 1 mg [diazepam 5 mg/mL injection syringe (0.2 mL)] Route: IVP; Site: cf2 Implantable Access Device; 22:58 Follow up: Response: Pain is decreased cf2 21:50 Drug: Dilaudid - HYDROmorphone 1 mg [hydromorphone 1 mg/mL injection syringe (1 mL)] cf2 Route: IVP; Site: Implantable Access Device; 22:57 Follow up: Response: Pain is decreased cf2 23:24 Drug: heparin 100units/mL flush (infusaport) 5 ml [heparin flush (porcine) 100 unit/mL cf2 in 0.9 % sodium chloride IV kit (5 mL)] Route: IVP; Site: Implantable Access Device; Order Results: Lab Order: B-Type Natiuretic Peptide; SPEC08/14/16 19:50 Test: BRAIN NATRIURETIC PEPTIDE; Value: 21.1; Range: <100; Units: PG/ML; Status: F Lab Order: Basic Metabolic Profile; SPEC08/14/16 19:50 Test: GLUCOSE, FASTING; Value: 109; Range: 70-105; Abnormal: Above high normal; Units: MG/DL; Status: F Test: BLOOD UREA NITROGEN; Value: 13; Range: 7-18; Units: MG/DL; Status: F Test: CREATININE FOR GFR; Value: 0.78; Range: 0.70-1.30; Units: MG/DL; Status: F Test: GLOMERULAR FILTRATION RATE; Value: > 60.0; Range: >60; Status: F Test: SODIUM LEVEL; Value: 140; Range: 136-145; Units: MEQ/L; Status: F Test: POTASSIUM SERUM; Value: 3.7; Range: 3.5-5.1; Units: MEQ/L; Status: F Test: CHLORIDE LEVEL; Value: 103; Range: 98-107; Units: MEQ/L; Status: F Test: CARBON DIOXIDE LEVEL; Value: 28; Range: 21-32; Units: MEQ/L; Status: F Test: ANION GAP; Value: 9; Range: 8-16; Units: MEQ/L; Status: F Test: CALCIUM LEVEL; Value: 9.3; Range: 8.5-10.1; Units: MG/DL; Status: F Test Note: ; Units are mL/min/1.73 m2 Chronic Kidney Disease Staging per NKF: Stage I & II GFR >=60 Normal to Mildly Decreased Stage III GFR 30-59 Moderately Decreased Stage IV GFR 15-29 Severely Decreased Stage V GFR <15 Very Little GFR Left ESRD GFR <15 on TAVERN KEEPER Lab Order: CBC with Diff; SPEC08/14/16 19:50 Test: WHITE BLOOD COUNT; Value: 8.9; Range: 4.0-10.0; Units: K/mm3; Status: F Test: RED BLOOD COUNT; Value: 4.27; Range: 4.30-6.10; Abnormal: Below low normal; Units: M/mm3; Status: F Test: HEMOGLOBIN; Value: 13.1; Range: 14.0-18.0; Abnormal: Below low normal; Units: g/dl; Status: F Test: HEMATOCRIT; Value: 39.1; Range: 42.0-52.0; Abnormal: Below low normal; Units: %; Status: F Test: MEAN CORPUSCULAR VOLUME; Value: 91.5; Range: 80.0-96.0; Units: fl; Status: F Test: MEAN CORPUSCULAR HEMOGLOBIN; Value: 30.6; Range: 27.0-33.0; Units: pg; Status: F Test: MEAN CORPUSCULAR HGB CONC; Value: 33.4; Range: 32.0-36.5; Units: g/dl; Status: F Test: RED CELL DISTRIBUTION WIDTH; Value: 13.3; Range: 11.5-14.5; Units: %; Status: F Test: PLATELET COUNT, AUTOMATED; Value: 201; Range: 150-450; Units: k/mm3; Status: F Test: NEUTROPHILS %; Value: 65.3; Range: 36.0-66.0; Units: %; Status: F Test: LYMPH %; Value: 24.6; Range: 24.0-44.0; Units: %; Status: F Test: MONO %; Value: 5.9; Range: 0.0-5.0; Abnormal: Above high normal; Units: %; Status: F Test: EOS %; Value: 1.3; Range: 0.0-3.0; Units: %; Status: F Test: BASO %; Value: 0.4; Range: 0.0-1.0; Units: %; Status: F Test: LARGE UNSTAINED CELL %; Value: 2.5; Range: 0.0-4.0; Units: %; Status: F Test: NEUTROPHILS #; Value: 5.8; Range: 1.8-7.7; Units: K/mm3; Status: F Test: LYMPH #; Value: 2.2; Range: 1.5-4.5; Units: K/mm3; Status: F Test: MONO #; Value: 0.5; Range: 0.0-0.8; Units: K/mm3; Status: F Test: EOS #; Value: 0.1; Range: 0.0-0.50; Units: K/mm3; Status: F Test: BASO #; Value: 0.0; Range: 0.0-0.2; Units: K/mm3; Status: F Test: LARGE UNSTAINED CELL #; Value: 0.2; Range: 0.0-0.4; Units: K/mm3; Status: F Lab Order: Cardiac Injury Profile; [facility] 08/14/16 19:50 Test: CPK CREATINE PHOSPHOKINASE; Value: 85; Range: 39-308; Units: U/L; Status: F Test: CK-MB VALUE MASS; Value: 2.3; Range: 0.0-3.6; Units: NG/ML; Status: F Test: MB/CK RELATIVE INDEX; Value: 2.70; Range: < OR =4; Status: F Test Note: ; DIAGNOSIS CRITERIA MMB ng/ml Relative Index (RI) NON-AMI < or = 5 N/A VERG[place] ZONE > 5 < or = 4 AMI > 5 > 4 Lab Order: Troponin; [facility] 08/14/16 19:50 Test: TROPONIN I; Value: < 0.02; Range: < 0.10; Units: NG/ML; Status: F Test Note: ; Troponin I Reference Interval for 1-800-[facility]CTORS LOCI: 99th Percentile= 0.00-0.045 ng/ml Risk Stratification: <= 0.10 ng/ml Decreased Risk for Adverse Clinical Events. 0.10-1.50 ng/ml Increased Risk for Adverse Clinical Events. Evaluation of additional criterion and/or repeat testing in 2-6 hours is suggested to rule out myocardial damage. >= 1.50 ng/ml Indicative of Myocardial Injury. Lab Order: CARDIAC INJURY PROFILE; [facility] 08/14/16 21:58 Test: CPK CREATINE PHOSPHOKINASE; Value: 88; Range: 39-308; Units: U/L; Status: F Test: CK-MB VALUE MASS; Value: 1.6; Range: 0.0-3.6; Units: NG/ML; Status: F Test: MB/CK RELATIVE INDEX; Value: 1.81; Range: < OR =4; Status: F Test Note: ; DIAGNOSIS CRITERIA MMB ng/ml Relative Index (RI) NON-AMI < or = 5 N/A VERGARA ZONE > 5 < or = 4 AMI > 5 > 4 Lab Order: TROPONIN; SPEC'M 08/14/16 21:58 Test: TROPONIN I; Value: < 0.02; Range: < 0.10; Units: NG/ML; Status: F Test Note: ; Troponin I Reference Interval for [employer] [place] LOCI: 99th Percentile= 0.00-0.045 ng/ml Risk Stratification: <= 0.10 ng/ml Decreased Risk for Adverse Clinical Events. 0.10-1.50 ng/ml Increased Risk for Adverse Clinical Events. Evaluation of additional criterion and/or repeat testing in 2-6 hours is suggested to rule out myocardial damage. >= 1.50 ng/ml Indicative of Myocardial Injury. Radiology Order: EKG-ADULT Test: EKG-ADULT REASON FOR EXAMINATION: Chest Pain; Stationary ECG Study; [facility] - ED; ; Test Date: 2016-08-14; Pat Name: JEAN PAUL FARAH Department:; Room: -; Gender: M Degreaser: dm; : 1975 Requested By: SHELIA Storey; Order Number: [id number] Reading MD: Mallory Kearns; Measurements; Intervals [place]; Rate: 97 P: 46; PA: 163 QRS: 23; QRSD: 79 T: 43; QT: 338; QTc: 431; Interpretive Statements; SINUS RHYTHM; DELAYED R PROGRESSION; SIMILAR 03/05/14; Electronically Signed On 08-14-2016 21:36:46 EST by Mallory Kearns; Radiology Order: portable chest Test: portable chest REASON FOR EXAMINATION: Chest Pain; AP PORTABLE CHEST: 08/14/2016 at 07:01 PM.; ; Clinical history: Chest pain.; ; Comparison: 04/16/2014; ; There is a right jugular indwelling catheter with tip in SVC. Lordotic projection; limits evaluation of the posterior lower lung zones. Lung centeno are; hyperinflated with some basilar fibrotic changes. Heart size magnified by; low-level inflation. There is some venous hypertension, however. The underlying; fibrosis makes early interstitial edema difficult to exclude. Chronic fibrotic; changes are mild, but stable. There is no gross effusion or dense consolidation,; but posterior lower lung zones are not well seen and there is some infrahilar; increased density bilaterally likely some minor atelectatic change.; ; Airway intact. Aortic calcified somewhat tortuous.; ; Impression:; ; 1. COPD and fibrosis with an indwelling right jugular central catheter.; ; 2. Heart size magnified by portable technique and lordotic projection but there; is some venous hypertension now and the underlying fibrosis makes early; interstitial edema difficult to exclude. No moo edema, dense consolidation or; visible effusion.; ; ; Signed by; Gonzalo Levine MD 08/15/2016 07:18 P; Radiology Order: ELECTROCARDIOGRAM ADULT Test: ELECTROCARDIOGRAM ADULT REASON FOR EXAMINATION: REPEAT; Stationary ECG Study; [facility]; ; Test Date: 2016-08-14; Pat Name: JEAN PAUL FARAH SR Department:; Room: -; Gender: M Degreaser: michelle; : 1975 Requested By: EMERGENCY ROOM; Order Number: [id number] Reading MD: Martha Esteves; Measurements; Intervals [place]; Rate: 96 P: 55; PA: 168 QRS: 25; QRSD: 81 T: 39; QT: 337; QTc: 426; Interpretive Statements; NORMAL SINUS RHYTHM; STABLE C/W 08/14/16; Electronically Signed On 08-15-2016 8:52:43 EST by Martha Esteves; Outcome: 23:31 Discharge ordered by Provider. gk1 23:37 Discharge Assessment: Patient awake, alert and oriented x 3. No cognitive and/or cf2 functional deficits noted. Patient verbalized understanding of disposition instructions. Patient awake and alert. Oriented to person, place and time. patient administered narcotics - yes. The following High Risk Discharge criteria are identified: None. Discharged to home via wheelchair, with family. Condition: stable. Discharge instructions given to patient, Instructed on discharge instructions, follow up and referral plans. Demonstrated understanding of instructions. No special radiology studies were completed. 23:50 Patient left the ED. cf2 Signatures: Dispatcher [employer] EDMS Delia James, Edgardo Hernandes DO DO mm11 Ansley Alarcon dem1 Arabella Marcano RN RN Shiloh Hoskins Christina,RN RN cf2 Ken Ratliff, HELIARC WELDER HELIARC WELDER jmv Ronaldo Heart, DO DO gk1 Renetta SchmidRN RN ja5 Milady Tate2 Corrections: (The following items were deleted from the chart) 18:05 17:49 Presenting complaint: Patient states: palpitations, weakness, legs tingling, and ttb hand tingling ---" I think I'm having another episode of guillaine barre". Also has chest pain. ttb Chart Complete MTDD
--- NOTE | 2016-08-17 00:51 | EDDOCDS ---
Physician Documentation [facility] Name: Jacoby Last Sr Age: 41 yrs Sex: Male : 1975 Arrival Date: 08/14/2016 Time: 17:42 Bed 9 Private MD: Henri Coley S Disposition: 08/14 23:31 I have independently interviewed and examined the patient, and I agree with the mm11 investigation, diagnosis and treatment plan as documented by the Resident. Disposition: 08/14/16 23:31 Discharged to Home/Self Care. Impression: Muscle weakness (generalized), Other chest pain, Chest pain, unspecified. - Condition is Stable. - Discharge Instructions: Nonspecific Chest Pain, Chest Wall Pain, Muscle Cramps and Spasms, Weakness, Chest Wall Pain, Rdpv-[id number]-Gchq, Nonspecific Chest Pain, Xpva-vq-Yroj, Muscle Cramps and Spasms, Ioqh-vp-Nket, Weakness, Iqdf-fw-Qcln. - Medication Reconciliation, Local Pharmacy Hours form. - Follow up: Madeleine Ni; When: 1 week; Reason: Recheck today's complaints, Continuance of care, To establish care. [facility]; When: Call to arrange an appointment; Reason: Recheck today's complaints, Continuance of care, To establish care. - Problem is an acute exacerbation. - Symptoms have improved. - Notes: Call Dr. Ni's office for follow up. Return to the ER, if your condition worsens. Call [facility] office to establish Primary Care Physician to follow up on today's visit as well as to establish care for general health. Historical: - Allergies: pcn; Ibuprofen; - Home Meds: 1. Neurontin 900 Oral tab bid (Last dose: 08/14/2016 08:00) 2. baclofen 10 mg Oral tab 4 times per day (Last dose: 08/14/2016 08:00) 3. Plavix 75 mg Oral tab 1 tab once daily (Last dose: 08/14/2016 08:00) 4. Xarelto 20 mg oral tab once daily (Last dose: 08/14/2016 08:00) 5. Nitrostat 0.6 mg SL subl every 5 minutes (Last dose: Unknown) 6. Valium 10 mg Oral tab 2 tab 2 times per day (Last dose: 08/14/2016 08:00) 7. meclizine 25 mg Oral chew once daily (Last dose: 08/14/2016 08:00) 8. Percocet 10-325 mg Oral tab every 6 hours (Last dose: 08/14/2016 08:00) 9. lisinopril-hydrochlorothiazide 20-12.5 mg oral tab once daily (Last dose: 08/14/2016 09:00) - PMHx: guinnain barre; CVA; [place]; CAD; kidney disease; COPD; asthma; - PSHx: cardiac stent; right upper chest port; - Social history: Smoking status: Patient uses tobacco products, current every day smoker. Patient/guardian denies using alcohol, street drugs, No barriers to communication noted, The patient speaks fluent Persian, Speaks appropriately for age, Patient uses alcohol only on a social basis. - Family history: Not pertinent. - : The pt / caregiver states he / she is on anticoagulants: Plavix. Xarelto Home medication list is obtained from the patient, family members. - Exposure Risk Screening:: None identified. Vital Signs: 17:45 BP 135 / 76; Pulse 99; Resp 17; Temp 97.1(T); Pulse Ox 99% on R/A; Weight 181.44 kg / lr2 400.01 lbs (R); Height 6 ft. 3 in. (190.50 cm); 18:16 Pulse 98 MON; Pulse Ox 96% ; cf2 18:16 BP 132 / 78; cf2 18:20 Pulse 96 MON; Pulse Ox 94% ; cf2 18:26 Pulse 96 MON; Pulse Ox 94% ; cf2 19:25 BP 132 / 78; Pulse 101; Resp 18; Temp 98.0; Pulse Ox 94% on R/A; Pain 8/10; cf2 19:55 BP 129 / 71; Pulse 104; Resp 18; Pulse Ox 94% on R/A; Pain 7/10; cf2 20:30 BP 133 / 82; Pulse 106; Resp 18; Pulse Ox 95% on R/A; Pain 5/10; cf2 21:00 BP 134 / 82; Pulse 101; Resp 18; Temp 98.0(O); Pulse Ox 94% ; cf2 21:30 BP 141 / 88; Pulse 99; Resp 18; Pulse Ox 94% on R/A; Pain 7/10; cf2 21:30 BP 132 / 77; Pulse 99; Resp 18; Temp 98.2; Pulse Ox 94% on R/A; Pain 8/10; cf2 23:37 BP 135 / 79; Pulse 94; Resp 18; Temp 98.0; Pulse Ox 95% on R/A; Pain 5/10; cf2 17:45 Body Mass Index 50.00 (181.44 kg, 190.50 cm) lr2 MDM: 18:01 ECG WITH READING ER PHYS+CARDIAG ordered. EDMS 18:46 Refrigeration Tech/Pulse Ox/q 30 min VS ordered. fg 18:46 IV Saline Lock ordered. fg 18:46 Rhythm Strip to chart ordered. fg 18:46 Undress patient appropriately for examination ordered. fg 18:47 B-Type Natiuretic Peptide Ordered. EDMS 18:47 Basic Metabolic Profile Ordered. EDMS 18:47 CBC with Diff Ordered. EDMS 18:47 Cardiac Injury Profile Ordered. EDMS 18:47 Troponin Ordered. EDMS 18:48 portable chest Ordered. EDMS 19:26 heparin 100units/mL flush (infusaport) 5 ml IVP once; flush first with 10mL of NS gk1 followed by heparin ordered. 19:45 Dilaudid - HYDROmorphone 1 mg IVP once ordered. gk1 20:38 REGULAR+DIET ordered. EDMS 20:43 Financial registration complete. gjb 20:54 Diazepam 1 mg IVP once ordered. gk1 20:55 [facility] Payment Agreement was scanned into Tripeese and attached to record. gjb 20:58 Basic Metabolic Profile Reviewed. gk1 20:58 CBC with Diff Reviewed. gk1 20:58 B-Type Natiuretic Peptide Reviewed. gk1 20:58 Cardiac Injury Profile Reviewed. gk1 20:58 Troponin Reviewed. gk1 21:40 Dilaudid - HYDROmorphone 1 mg IVP once ordered. mm11 21:40 Redraw CIP &Troponin (put time in details section) ordered. mm11 21:40 Repeat EKG (put time details section) ordered. mm11 21:49 Repeat EKG (put time details section) complete. jlm 21:49 Redraw CIP &Troponin (put time in details section) complete. jlm 21:49 CARDIAC INJURY PROFILE Ordered. EDMS 21:49 TROPONIN Ordered. EDMS 21:51 ELECTROCARDIOGRAM ADULT ordered. EDMS 22:54 CARDIAC INJURY PROFILE Reviewed. gk1 22:54 TROPONIN Reviewed. gk1 22:54 EKG-ADULT Reviewed. gk1 22:54 portable chest Reviewed. gk1 23:22 heparin 100units/mL flush (infusaport) 5 ml IVP once; flush first with 10mL of NS gk1 followed by heparin ordered. 08/15 10:16 T-Sheet-- Draft Copy was scanned into Tripeese and attached to record. 15:40 ECG/EKG was scanned into Tripeese and attached to record. gb Administered Medications: 08/14 19:59 Drug: heparin 100units/mL flush (infusaport) 5 ml [heparin, porcine (PF) 10 unit/mL cf2 intravenous syringe (5 mL)] Route: IVP; Site: Implantable Access Device; 22:58 Follow up: Response: Pain is decreased cf2 19:59 Drug: Dilaudid - HYDROmorphone 1 mg [hydromorphone 1 mg/mL injection syringe (1 mL)] cf2 Route: IVP; Site: Implantable Access Device; 22:58 Follow up: Response: Pain is decreased cf2 21:00 Drug: Diazepam 1 mg [diazepam 5 mg/mL injection syringe (0.2 mL)] Route: IVP; Site: cf2 Implantable Access Device; 22:58 Follow up: Response: Pain is decreased cf2 21:50 Drug: Dilaudid - HYDROmorphone 1 mg [hydromorphone 1 mg/mL injection syringe (1 mL)] cf2 Route: IVP; Site: Implantable Access Device; 22:57 Follow up: Response: Pain is decreased cf2 23:24 Drug: heparin 100units/mL flush (infusaport) 5 ml [heparin flush (porcine) 100 unit/mL cf2 in 0.9 % sodium chloride IV kit (5 mL)] Route: IVP; Site: Implantable Access Device; Signatures: Dispatcher [employer]ove EDMS Delia James, Reg Reg gb Edgardo Paz, DO mm11 Arabella Marcano, RAIN RN ttb Rula Lopez, Rubber Goods Tester Unit jlm Shelia Dela Cruz MD MD fg Beck, Gabriela gjb Familetti-Gonzalez, Christina, RN RN cf2 Una, Ronaldo, DO DO gk1 The chart was reviewed and I authenticate all verbal orders and agree with the evaluation and treatment provided.Corrections: (The following items were deleted from the chart) 22:36 21:27 CT Head without contrast+CT ordered. EDMS EDMS Attachments: 20:55 [facility] Payment Agreement gjb 08/15 10:16 T-Sheet-- Draft Copy gb 15:40 ECG/EKG gb Chart Complete MTDD
== END 2016-08-14 23:50 | disposition home or self-care (01) ==
LOC: M ED 17:42
DX: M62.81 Muscle weakness (generalized) (principal); R07.89 Other chest pain; I25.10 Atherosclerotic heart disease of native coronary artery without angina pectoris; N18.9 Chronic kidney disease, unspecified; J44.9 Chronic obstructive pulmonary disease, unspecified; I25.2 Old myocardial infarction; G61.0 Guillain-Barre syndrome; Z72.0 Tobacco use; Z98.61 Coronary angioplasty status; Z86.73 Personal history of transient ischemic attack (TIA), and cerebral infarction without residual deficits; Z79.891 Long term (current) use of opiate analgesic; Z79.899 Other long term (current) drug therapy; Z88.0 Allergy status to penicillin; Z88.6 Allergy status to analgesic agent
CPT/HCPCS: 71010; 80048; 82550; 82553; 83880; 85025; 93005; 93041; 96374; 96375; 96376; 99285; J1170; J3360

== ENCOUNTER 2016-09-02 17:24 | Emergency (ER) | payer OTHER ==
[~2016-09-02] VITALS: Ht 190.5 cm; Wt 181.4 kg
[2016-09-02 17:25] VITALS: BP 154/92
[2016-09-02] MEDS ORDERED: FURO20TA2 PO (17:52)
[2016-09-02] MEDS ORDERED: OXYC1TAB23 PO (17:52)
[2016-09-02] MEDS ORDERED: DIAZ10GE PR (17:52)
[2016-09-02] MEDS ORDERED: PLAV75TA38 PO (17:56)
[2016-09-02] MEDS ORDERED: XARE10TA PO (17:56)
[2016-09-02] MEDS ORDERED: HYDROmorphone HCL 1 MG/ML SYRINGE (J1170) IV ONE (19:30)
[2016-09-02] MEDS ORDERED: NS 1,000 ML IV ONE (19:30)
[2016-09-02] MEDS ORDERED: diazePAM 5 MG TAB PO ONE (20:00)
[2016-09-02] MEDS ORDERED: OXYCODONE/APAP 5MG/325MG(BULK) 1 TAB TAB PO ONE (20:00)
== END 2016-09-02 20:25 | disposition home or self-care (01) ==
LOC: M ED 18:47
DX: G89.29 Other chronic pain (principal); M79.609 Pain in unspecified limb; Z76.0 Encounter for issue of repeat prescription; N17.9 Acute kidney failure, unspecified; Z79.02 Long term (current) use of antithrombotics/antiplatelets; Z79.899 Other long term (current) drug therapy; Z88.6 Allergy status to analgesic agent; Z88.0 Allergy status to penicillin; Z91.018 Allergy to other foods
CPT/HCPCS: 96374; 96375; 99281; J1170; J3360

== ENCOUNTER 2016-10-05 14:17 | Emergency (ER) | payer OTHER ==
[~2016-10-05] VITALS: Ht 190.5 cm; Wt 182.3 kg
[2016-10-05 14:17] VITALS: BP 164/98
[~2016-10-05 14:17] MED LIST changes: +DIAZ10GE PR; +FURO20TA2 PO; +OXYC1TAB23 PO; +PLAV75TA38 PO; +XARE10TA PO
[2016-10-05] MEDS ORDERED: [UNRECOGNIZED DRUG - CODE] PO (14:35)
== END 2016-10-05 15:26 | disposition home or self-care (01) ==
LOC: M ED 14:53
DX: G89.29 Other chronic pain (principal); Z76.0 Encounter for issue of repeat prescription; Z88.0 Allergy status to penicillin; Z88.6 Allergy status to analgesic agent; Z91.018 Allergy to other foods; Z79.82 Long term (current) use of aspirin; Z79.899 Other long term (current) drug therapy

== ENCOUNTER 2016-10-20 01:09 | Emergency (ER) | payer OTHER ==
[~2016-10-20] VITALS: Ht 190.5 cm; Wt 181.9 kg
[~2016-10-20 01:09] MED LIST changes: +[UNRECOGNIZED DRUG - CODE] PO
[2016-10-20] MEDS ORDERED: CLOP75TA2 (02:20)
[2016-10-20] MEDS ORDERED: ASPI81TA7 (02:20)
[2016-10-20] MEDS ORDERED: MECL-68 (02:20)
[2016-10-20] MEDS ORDERED: PANT40TA2 (02:20)
[2016-10-20] MEDS ORDERED: BENZ200C44 (02:20)
[2016-10-20] MEDS ORDERED: BACL10TA2 (02:20)
[2016-10-20] MEDS ORDERED: GABA-282 (02:20)
[2016-10-20] MEDS ORDERED: XARE20TA (02:20)
[2016-10-20 03:12] LABS: BASO % 0.4 % (0.0-1.0); EOS # 0.2 K/mm3 (0.0-0.50); EOS % 1.8 % (0.0-3.0); LARGE UNSTAINED CELL # 0.3 K/mm3 (0.0-0.4); LARGE UNSTAINED CELL % 2.8 % (0.0-4.0); LYMPH # 3.4 K/mm3 (1.5-4.5); MEAN CORPUSCULAR HEMOGLOBIN 29.6 pg (27.0-33.0); MEAN CORPUSCULAR VOLUME 92.4 fl (80.0-96.0); MONO # 0.8 K/mm3 (0.0-0.8); MONO % 7.7 % (0.0-5.0); NEUTROPHILS # 5.4 K/mm3 (1.8-7.7); NEUTROPHILS % 55.2 % (36.0-66.0); PLATELET COUNT, AUTOMATED 184 k/mm3 (150-450); RED CELL DISTRIBUTION WIDTH 13.2 % (11.5-14.5); WHITE BLOOD COUNT 9.8 K/mm3 (4.0-10.0)
[2016-10-20] MEDS: HYDROmorphone HCL 1 MG/ML SYRINGE (J1170) IV PRN ×2 (03:12→03:55)
[2016-10-20 03:56] LABS: ANION GAP 5 MEQ/L (8-16); BLOOD UREA NITROGEN 15 MG/DL (7-18); CALCIUM LEVEL 8.3 MG/DL (8.5-10.1); CARBON DIOXIDE LEVEL 31 MEQ/L (21-32); CHLORIDE LEVEL 101 MEQ/L (98-107); CREATININE FOR GFR 0.93 MG/DL (0.70-1.30); GLOMERULAR FILTRATION RATE > 60.0 (>60); GLUCOSE, FASTING 101 MG/DL (70-105); POTASSIUM SERUM 4.3 MEQ/L (3.5-5.1); SODIUM LEVEL 137 MEQ/L (136-145)
[2016-10-20 05:18] VITALS: BP 142/85
--- NOTE | 2016-10-20 07:40 | ECGEPIP ---
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
== END 2016-10-20 05:19 | disposition home or self-care (01) ==
LOC: EDBD 01:09 → M ED 02:21
DX: M62.838 Other muscle spasm (principal); R07.89 Other chest pain; G89.29 Other chronic pain; F17.200 Nicotine dependence, unspecified, uncomplicated
CPT/HCPCS: 36415; 80048; 82550; 82553; 85025; 93005; 93041; 94760; 96374; 96375; 96376; 99284; J1170; J3360

== ENCOUNTER 2016-11-01 11:16 | Emergency (ER) | payer OTHER ==
[~2016-11-01] VITALS: Ht 190.5 cm; Wt 181.9 kg
[~2016-11-01 11:16] MED LIST changes: +ASPI81TA7; +BACL10TA2; +BENZ200C44; +CLOP75TA2; +GABA-282; +MECL-68; +PANT40TA2; +XARE20TA
[2016-11-01] MEDS ORDERED: DIAZ20GE PR (11:38)
[2016-11-01] MEDS ORDERED: PERCOCET 5MG/325MG TAB PO ONE (13:45)
[2016-11-01 14:18] LABS: BASO % 0.4 % (0.0-1.0); EOS # 0.1 K/mm3 (0.0-0.50); EOS % 1.9 % (0.0-3.0); LARGE UNSTAINED CELL # 0.2 K/mm3 (0.0-0.4); LARGE UNSTAINED CELL % 2.1 % (0.0-4.0); LYMPH # 1.9 K/mm3 (1.5-4.5); LYMPH % 23.6 % (24.0-44.0); MEAN CORPUSCULAR HEMOGLOBIN 30.5 pg (27.0-33.0); MEAN CORPUSCULAR HGB CONC 32.7 g/dl (32.0-36.5); MEAN CORPUSCULAR VOLUME 93.4 fl (80.0-96.0); MONO # 0.4 K/mm3 (0.0-0.8); MONO % 5.7 % (0.0-5.0); NEUTROPHILS # 4.8 K/mm3 (1.8-7.7); NEUTROPHILS % 66.3 % (36.0-66.0); PLATELET COUNT, AUTOMATED 189 k/mm3 (150-450); RED CELL DISTRIBUTION WIDTH 13.2 % (11.5-14.5); WHITE BLOOD COUNT 7.2 K/mm3 (4.0-10.0)
[2016-11-01 14:38] LABS: ALBUMIN 3.4 GM/DL (3.2-5.2); ALBUMIN/GLOBULIN RATIO 0.83 (1.00-1.93); ALKALINE PHOSPHATASE 108 U/L (45-117); ALT/SGPT 46 U/L (12-78); ANION GAP 5 MEQ/L (8-16); AST/SGOT 27 U/L (15-37); BILIRUBIN,DIRECT 0.1 MG/DL (0.0-0.2); BILIRUBIN,TOTAL 0.4 MG/DL (0.2-1.0); BLOOD UREA NITROGEN 7 MG/DL (7-18); CALCIUM LEVEL 9.1 MG/DL (8.5-10.1); CARBON DIOXIDE LEVEL 32 MEQ/L (21-32); CHLORIDE LEVEL 101 MEQ/L (98-107); CREATININE FOR GFR 0.69 MG/DL (0.70-1.30); GLOMERULAR FILTRATION RATE > 60.0 (>60); GLUCOSE, FASTING 100 MG/DL (70-105); POTASSIUM SERUM 3.9 MEQ/L (3.5-5.1); SODIUM LEVEL 138 MEQ/L (136-145); TOTAL PROTEIN 7.5 GM/DL (6.4-8.2)
[2016-11-01 14:40] LABS: ERYTHROCYTE SEDIMENTATION RATE 49 mm/hr (0-15)
[2016-11-01 15:12] VITALS: BP 136/101
--- NOTE | 2016-11-02 06:45 | REP ---
LEFT FOOT, FOUR VIEWS: HISTORY: Ecchymosis. There is no acute fracture or dislocation. The joint spaces are normal in appearance. IMPRESSION: There is no acute fracture or dislocation. RIGHT FOOT, FOUR VIEWS: There is no acute fracture or dislocation. The joint spaces are normal in appearance. IMPRESSION: There is no acute fracture or dislocation. Signed by Anthony Mayo MD 11/02/2016 08:23 A
[2016-11-02] MEDS ORDERED: SODIUM CHLORIDE 0.9% INJ 10 ML SYR IV SCH ×2 (09:00)
== END 2016-11-01 15:44 | disposition home or self-care (01) ==
LOC: M ED 12:59
DX: I73.9 Peripheral vascular disease, unspecified (principal); R60.9 Edema, unspecified; M79.671 Pain in right foot; M79.672 Pain in left foot; I50.9 Heart failure, unspecified; G40.909 Epilepsy, unspecified, not intractable, without status epilepticus; I25.10 Atherosclerotic heart disease of native coronary artery without angina pectoris; I25.2 Old myocardial infarction; E78.00 Pure hypercholesterolemia, unspecified; J45.909 Unspecified asthma, uncomplicated; N18.9 Chronic kidney disease, unspecified; F43.10 Post-traumatic stress disorder, unspecified; M54.5 Low back pain; G61.0 Guillain-Barre syndrome; G24.01 Drug induced subacute dyskinesia; Z88.0 Allergy status to penicillin; Z88.6 Allergy status to analgesic agent; Z91.018 Allergy to other foods

== ENCOUNTER 2016-11-09 23:45 | Emergency (ER) | payer OTHER ==
[~2016-11-09] VITALS: Ht 190.5 cm; Wt 181.9 kg
[~2016-11-09 23:45] MED LIST changes: +DIAZ20GE PR
[2016-11-10] MEDS ORDERED: GABA-282 PO
[2016-11-10] MEDS ORDERED: VALI10TA PO (06:38)
[2016-11-10] MEDS ORDERED: PERC5TAB6 PO (06:38)
[2016-11-10 06:52] VITALS: BP 138/94
[2016-11-10] MEDS ORDERED: PERCOCET 5MG/325MG TAB As Ordered ONE (06:52)
[2016-11-10] MEDS ORDERED: PERCOCET 5MG/325MG TAB PO ONE (07:00)
== END 2016-11-10 07:00 | disposition home or self-care (01) ==
LOC: M ED 11-10 01:18
DX: G90.09 Other idiopathic peripheral autonomic neuropathy (principal); G61.0 Guillain-Barre syndrome; J45.909 Unspecified asthma, uncomplicated; G89.29 Other chronic pain; I50.9 Heart failure, unspecified; E78.00 Pure hypercholesterolemia, unspecified; I10 Essential (primary) hypertension; J44.9 Chronic obstructive pulmonary disease, unspecified; G47.30 Sleep apnea, unspecified; F17.200 Nicotine dependence, unspecified, uncomplicated; Z76.0 Encounter for issue of repeat prescription; Z79.82 Long term (current) use of aspirin; Z79.899 Other long term (current) drug therapy; Z88.0 Allergy status to penicillin; Z88.6 Allergy status to analgesic agent; Z91.018 Allergy to other foods

== ENCOUNTER 2016-12-14 06:34 | Outpatient (CLI) | payer OTHER ==
[~2016-12-14] VITALS: Ht 190.5 cm; Wt 176.0 kg
[~2016-12-14 06:34] MED LIST changes: +DIAZ20GE PO; -DIAZ20GE PR; +GABA-282 PO; -MECL-68; +MECL-68 PO; +PERC5TAB6 PO
[2016-12-14 07:41] LABS: BASO # 0.1 K/mm3 (0.0-0.2); BASO % 0.6 % (0.0-1.0); EOS # 0.2 K/mm3 (0.0-0.50); EOS % 2.2 % (0.0-3.0); LARGE UNSTAINED CELL # 0.2 K/mm3 (0.0-0.4); LARGE UNSTAINED CELL % 2.3 % (0.0-4.0); LYMPH # 3.6 K/mm3 (1.5-4.5); LYMPH % 34.8 % (24.0-44.0); MEAN CORPUSCULAR HEMOGLOBIN 32.1 pg (27.0-33.0); MEAN CORPUSCULAR HGB CONC 34.6 g/dl (32.0-36.5); MEAN CORPUSCULAR VOLUME 92.7 fl (80.0-96.0); MONO # 0.7 K/mm3 (0.0-0.8); MONO % 6.8 % (0.0-5.0); NEUTROPHILS # 5.2 K/mm3 (1.8-7.7); NEUTROPHILS % 53.2 % (36.0-66.0); PLATELET COUNT, AUTOMATED 177 k/mm3 (150-450); RED CELL DISTRIBUTION WIDTH 13.2 % (11.5-14.5); WHITE BLOOD COUNT 9.7 K/mm3 (4.0-10.0)
[2016-12-14 08:32] LABS: INR 0.96
[2016-12-14] MEDS ORDERED: SODIUM CHLORIDE 0.9% INJ 10 ML SYR IV SCH (09:00)
[2016-12-14 09:04] LABS: ALBUMIN 3.6 GM/DL (3.2-5.2); ALBUMIN/GLOBULIN RATIO 0.97 (1.00-1.93); ALKALINE PHOSPHATASE 114 U/L (45-117); ALT/SGPT 59 U/L (12-78); ANION GAP 8 MEQ/L (8-16); AST/SGOT 28 U/L (15-37); BILIRUBIN,TOTAL 0.5 MG/DL (0.2-1.0); BLOOD UREA NITROGEN 13 MG/DL (7-18); CALCIUM LEVEL 8.9 MG/DL (8.5-10.1); CARBON DIOXIDE LEVEL 28 MEQ/L (21-32); CHLORIDE LEVEL 102 MEQ/L (98-107); CHOLESTEROL LEVEL 232 MG/DL (<200); CREATININE FOR GFR 0.96 MG/DL (0.70-1.30); GLOMERULAR FILTRATION RATE > 60.0 (>60); GLUCOSE, FASTING 99 MG/DL (70-105); MAGNESIUM LEVEL 1.9 MG/DL (1.8-2.4); POTASSIUM SERUM 3.9 MEQ/L (3.5-5.1); SODIUM LEVEL 138 MEQ/L (136-145); TOTAL PROTEIN 7.3 GM/DL (6.4-8.2); TRIGLYCERIDES LEVEL 113 MG/DL (<150)
[2016-12-14] MEDS ORDERED: VALI10TA PO (12:08)
[2016-12-14] MEDS ORDERED: IPRASOL4 INH (12:17)
[2016-12-14] MEDS ORDERED: DUO NEB (12:17)
== END 2016-12-14 07:40 | disposition home or self-care (01) ==
LOC: M INFU 06:34
PROVIDERS: ATTEND Nurse Practitioner Family
DX: E16.2 Hypoglycemia, unspecified (principal); Z79.01 Long term (current) use of anticoagulants; I13.0 Hypertensive heart and chronic kidney disease with heart failure and stage 1 through stage 4 chronic kidney disease, or unspecified chronic kidney disease; G89.4 Chronic pain syndrome; Z13.220 Encounter for screening for lipoid disorders; I25.119 Atherosclerotic heart disease of native coronary artery with unspecified angina pectoris; Z88.8 Allergy status to other drugs, medicaments and biological substances; Z88.0 Allergy status to penicillin; Z79.899 Other long term (current) drug therapy; Z79.82 Long term (current) use of aspirin

== ENCOUNTER → 2016-12-15 | Outpatient (CLI) | payer OTHER ==
[~2016-12-15] MED LIST changes: +ASPI1TAB15; -ASPI81TA7; +BACT800T5 PO; -BENZ200C44; +BENZ200C53; +DUO NEB; +IPRASOL4 INH; +LISI20TA PO; +MAGN500C PO; -ONDA1TAB15 PO; +ONDA4TAB5 PO; +PANT40TA2 PO; +PEPT262T2 PO; +PERC5TAB12 PO; -PERC5TAB6 PO; +PLAV1TAB2 PO; -PLAV75TA38 PO; +PRED20TA PO; +VITA200028 PO; +VITA200038 PO; +VITA500T PO; +XARE20TA PO
--- NOTE | 2016-12-29 00:41 | ECWPNPC ---
PATIENT NAME: JEAN PAUL FARAH : 1975 GENDER: MALE VISIT DATE: 12/15/2016 DISCHARGE DATE: 12/15/16 1318 VISIT LOCKED DATE TIME: PHYSICIAN: VINICIUS PETERSON RESOURCE: VINICIUS PETERSON REASON FOR APPOINTMENT 1. CHRONIC PAIN HISTORY OF PRESENT ILLNESS FALL RISK SCREENING: JEAN PAUL IS A 41 Y/O MALE REFERRED BY [facility] FOR EVALUATION OF CHRONIC GENERALIZED BODY PAIN.HAS MULTIPLE COMORBIDITIES AND MEDICAL ISSUES THAT MAKE PRESCRIBING OPIATES FOR CHRONIC PAIN TOO RISKY.HE [place] AND IS HOMELESS.HAS TRIALED MULTIPLE PAIN MEDICATIONS AND THE ONLY MEDICATION THAT IS HELPFUL IS OXYCODONE.HE IS NOT A GOOD CANDIDATE FOR INJECTION THERAPY.HE IS FRUSTERATED DURING VISIT AFTER I EXPLAINED ALL OF THIS TO HIM.RATING PAIN 10/10 VAS. SCREENING :NO FALLS IN THE PAST YEAR PAIN SCREENING: PATIENT HAS A COMPLAINT OF ACUTE OR CHRONIC PAIN :YES CURRENT MEDICATIONS TAKING GABAPENTIN 300 MG CAPSULE 3 TABS ORALLY DAILY TAKING LASIX DAILY TAKING LISINOPRIL-HYDROCHLOROTHIAZIDE 12.5-10 MG TABLET ORALLY DAILY TAKING DIAZEPAM 10 MG MISCELLANEOUS RECTAL THREE TIMES DAILY TAKING PERCOCET 5-325 MG TABLET ORALLY FOUR TIMES DAILY NEEDED TAKING BACLOFEN 10 MG TABLET ORALLY FOUR TIMES DAILY TAKING ATROVENT HFA 17 MCG/ACT AEROSOL SOLUTION INHALATION TAKING ASA DAILY TAKING NITROSTAT 0.4 MG TABLET SUBLINGUAL SUBLINGUAL DIRECTED TAKING PROAIR HFA 108 (90 BASE) MCG/ACT AEROSOL SOLUTION INHALATION DIRECTED MEDICATION LIST REVIEWED AND RECONCILED WITH THE PATIENT PAST MEDICAL HISTORY GULLIAN BARRE SYNDROM HEART ATTACK CHF STROKE KIDNEY FAILURE ASTHMA COPD TARDIVE DYSKENSIA STRESS INDUCED EPILEPSY CHRONIC MIGRAINES ALLERGIES PENICILLIN (FOR ALLERGIES USE ONLY): ANAPHYLAXIS: ALLERGY FLEXERIL: NAUSEA/VOMITING: ALLERGY IBUPROFEN: NAUSEA/VOMITING: ALLERGY SURGICAL HISTORY STENT LAD 2015 PORT FOR VENOUS INSUFFICIENCY 2014 FAMILY HISTORY FATHER: MOTHER: 1 SON(S) , 1 DAUGHTER(S) . DAD - ALCHOLISM, MOM- SUICIDEPT REFUSED TO ANSWER SEVERAL QUESTIONS REGARDING FAMILY HISTORY. SOCIAL HISTORY GENERAL: TOBACCO USE ARE YOU A:CURRENT SMOKER HOW MANY CIGARETTES A DAY DO YOU SMOKE?6-10 PATIENT COUNSELED ON THE DANGERS OF TOBACCO USE AND URGED TO QUIT:12/15/2016 ARE YOU INTERESTED IN QUITTING?NOT READY TO QUIT COUNSELED THE PATIENT ON SMOKING EFFECTS, EDUCATION APZTQCIF19/13/2017 CAFFEINE CAFFEINE USE?YES HOW OFTEN AND HOW MUCH? CONSTANT INTAKE LEARNING BARRIERS / SPECIAL NEEDS BARRIERS TO LEARNING?NO READINESS TO LEARN?NO LEARNING PREFERENCES?YES : PT UNABLE TO READ/WRITE SPECIAL DEVICES?YES : WHEELCHAIR BOUND VP RESEARCH NEEDED?NO NEW PATIENT PAIN DIARY PATIENT DESCRIBES PAIN :ACHING, BURNING, HAVE IT ALL THE TIME FROM 0-10, WHAT LEVEL IS YOUR PAIN TODAY?10 PRECIPITATING FACTORS PT STATES THAT PT IS IN CONSTANT PAIN, AGGRAVATED BY EVERYTHING ALLEVIATING FACTORS PT HAS NOT FOUND ANYTHING THAT IMPROVES PAIN IMPACT ON FUNCTION WHEELCHAIR BOUND DO YOU TAKE ANY BLOOD THINNERS?YES PLAVIX LAST DOSE 12/14/16 DO YOU HAVE ANY RASHES OR OPEN SORES?YES RASHES ON ARMS AND ABDOMEN ARE YOU ALLERGIC TO SHELLFISH OR IV DYE?YES ARE YOU DIABETIC?NO DO YOU HAVE A PACEMAKER OR DEFIBRILLATOR?NO ANY NEW PROBLEMS WITH MEDICINES OR NEW ALLERGIESNO ANY NEW PATTERNS OF PAIN OR NUMBNESS?YES WEAKNESS AND INCREASE PAIN INTENSITY HAVE YOU FALLEN IN THE LAST 6 MONTHS?YES PT STATES THAT HE FELL YESTERDAY GETTING OUT OF SHOWER, LEG GAVE OUT AND LANDED ON KNEES, NO INJURY, NO REPORT TO ED DO YOU USE ANY TYPE OF TOBACCO (SMOKE, SMOKELESS, CHEW, ETC.)YES ARE YOU ABUSED, NEGLECTED, OR IN AN UNSAFE ENVIRONMENT?NO DO YOU HAVE THOUGHTS OF HURTING YOURSELF OR SOMEONE ELSE?NO DO YOU NEED ANY PRESCRIPTIONS?YES DO YOU HAVE ANY OTHER QUESTIONS OR CONCERNS?NO INTENSITY SCALE REVIEWEDNUMBER SCORE10 REVIEWED BY: DS. ADVANCE DIRECTIVES HEALTH CARE PROXY?YES NAME OF HCP LIAM BAZAN CONTACT # FOR HCP [phone] DO YOU HAVE A COPY WITH YOU?NO DO YOU HAVE A DNR?NO WOULD YOU LIKE MORE INFORMATION?YES REVIEW OF SYSTEMS REVIEWED BY: PROVIDER: VINICIUS HERNANDEZ . CONSTITUTIONAL: ANY CHANGE IN YOUR MEDICAL CONDITION? NO . CHILLS NO . FEVER NO . INFECTION: DO YOU HAVE NEW INFECTIONS? NO . DO YOU HAVE HISTORY OF MRSA? NO . MUSCULOSKELETAL: ANY NEW PATTERNS OF PAIN OR NUMBNESS? NO . SYTEMIC LUPUS NO . GASTROENTEROLOGY: ANY NEW CHANGE IN BOWEL CONTROL? NO . BARRETTS ESOPHAGUS NO . CIRRHOSIS NO . HEPATITIS NO . LIVER FAILURE NO . ACID REFLUX NO . UNEXPLAINED WEIGHT LOSS NO . GENITOURINARY: ANY NEW CHANGE IN BLADDER CONTROL? NO . IS THERE A CHANCE YOU COULD BE ? NO . HEMATOLOGY/LYMPH: DO YOU TAKE ANY BLOOD THINNERS? (FOR EXAMPLE- COUMADIN, PLAVIX, AGGRENOX, PLATEL, PRADAXA, OR XARELTO) NO . WHEN WAS YOUR LAST DOSE? DATE: TIME: . LOW PLATELET COUNT NO . SICKLE CELL DISEASE NO . VON WILLIEBRANDS NO . FACTOR V LEIDEN NO . THALLASEMIA NO . ANEMIA NO . EASY BRUISING NO . NEUROLOGY: HAVE YOU FALLEN IN THE PAST 6 MONTHS? NO . ANY NEW EXTREMITY NUMBNESS OR WEAKNESS? NO . HEAD INJURY NO . DEMENTIA NO . CEREBRAL PALSY NO . MULTIPLE SCLEROSIS NO . DIZZINESS NO . HEADACHE NO . STROKES NO . VERTIGO NO . CARDIOLOGY: DO YOU HAVE A PACEMAKER OR DEFIBRILLATOR? NO . ANGINA NO . HEART ATTACK NO . HEART SURGERY NO . CONGESTIVE HEART FAILURE/FLUID OVERLOAD NO . CHEST PAIN NO . HIGH BLOOD PRESSURE NO . IRREGULAR HEART BEAT NO . RESPIRATORY: HAVE YOU BEEN SICK IN THE PAST WEEK? NO . FEVER NO . FLU LIKE SYMPTOMS? NO . CPAP NO . BYPAP NO . ASTHMA NO . EMPHYSEMA NO . CHRONIC LUNG DISEASES NO . SHORTNESS OF BREATH ON EXERTION NO . COUGH NO . SNORING NO . INTEGUMENTARY: DO YOU HAVE ANY RASHES OR OPEN SORES? NO . ALLERGIC/IMMUNO: ARE YOU ALLERGIC TO SHELLFISH OR IV DYE? NO . ANY NEW ALLERGIES? NO . PSYCHIATRIC: DO YOU HAVE THOUGHTS OF HURTING YOURSELF OR SOMEONE ELSE? NO . ARE YOU ABUSED, NEGLECTED, OR IN AN UNSAFE ENVIRONMENT? NO . ENDOCRINOLOGY: ARE YOU DIABETIC? NO . THYROID DISORDER NO . OTHER: DO YOU NEED ANY PRESCRIPTIONS? NO . IF YES, PLEASE LIST: ____ . ANY NEW PROBLEMS WITH YOUR MEDICATIONS? NO . WHEN DID YOU LAST EAT? ____ . WHEN DID YOU LAST DRINK? ____ . WHAT DID YOU LAST DRINK? ____ . NAME OF PERSON DRIVING YOU HOME? ____ . DO YOU HAVE ANY OTHER QUESTIONS OR CONCERNS NO . VITAL SIGNS WT 388.0 LBS, HT 73", BMI 51.18 INDEX, BP 146/92 MM HG, HR 95 /MIN, RR 20 /MIN, TEMP 97.9 F, OXYGEN SAT % 94%, SAFE IN ENV? (Y/N) Y, NA INITIALS TL 1203, REVIEWED BY: SCOTTY. EXAMINATION GENERAL EXAMINATION: GENERAL APPEARANCE:MORBID OBESE.IN WHEELCHAIR.. PSYCHPOOR EYE CONTACT.FRUSTRATED. LUNGS:DECREASED AIR ENTRY AT BASES. HEART:S1, S2 IN A REGULAR RATE AND RHYTHM. NO SIGNIFICANT MURMURS, RUBS OR GALLOPS NOTED. BACK:UNABLE TO STAND FOR EXAM. ABDOMEN:NON TENDER.OBESE. ASSESSMENTS PAIN SYNDROME, CHRONIC - G89.4 (PRIMARY) TREATMENT PAIN SYNDROME, CHRONIC NOTES: RECOMMENDATIONS FOR PAIN MEDICINE WILL BE MADE TO REFERRING PROVIDER.HE IS NOT A CANDIDATE FOR INTERVENTIONAL THERAPY. PROCEDURE CODES FA211 ESTABILISHED PATIENT [facility] CHARGE DISPOSITION & COMMUNICATION FOLLOW UP NO F/U/CONTINUE CARE W PRIMARY CARE ELECTRONICALLY SIGNED BY MARY FRIEND ON 12/28/2016 AT 05:26 PM EDT DISCLAIMER : THIS IS A VISIT SUMMARY EXTRACTED FROM THE [facility] CHART. IT IS NOT A COPY OF THE [facility] PROGRESS NOTE. THOMAS
== END ==
LOC: M PAIN 13:20
PROVIDERS: ATTEND Nurse Practitioner Family
DX: G89.4 Chronic pain syndrome (principal); Z79.891 Long term (current) use of opiate analgesic; Z79.899 Other long term (current) drug therapy; F17.210 Nicotine dependence, cigarettes, uncomplicated; Z88.0 Allergy status to penicillin; Z88.6 Allergy status to analgesic agent; Z88.8 Allergy status to other drugs, medicaments and biological substances

== ENCOUNTER 2016-12-30 07:04 | Outpatient (RCR) | payer OTHER ==
[~2016-12-30 07:04] MED LIST changes: -BACT800T5 PO; -LISI20TA PO; -MAGN500C PO; -PANT40TA2 PO; -PEPT262T2 PO; -PRED20TA PO; -VITA200028 PO; -VITA200038 PO; -VITA500T PO; -XARE20TA PO
[2017-01-01] MEDS ORDERED: OXYC1TAB23 PO (07:33)
== END 2017-01-01 ==
LOC: M PT 07:04
PROVIDERS: ATTEND Nurse Practitioner Family
DX: G60.9 Hereditary and idiopathic neuropathy, unspecified (principal); Z86.69 Personal history of other diseases of the nervous system and sense organs

== ENCOUNTER 2017-01-01 06:15 | Outpatient (CLI) | payer OTHER ==
[2017-01-01] MEDS ORDERED: SODIUM CHLORIDE 0.9% INJ 10 ML SYR IV SCH (06:30)
[2017-01-01] MEDS ORDERED: OXYC1TAB23 PO (07:33)
== END 2017-01-01 07:00 | disposition home or self-care (01) ==
LOC: M INFU 06:15
PROVIDERS: ATTEND Nurse Practitioner Family
DX: G61.0 Guillain-Barre syndrome (principal); Z79.899 Other long term (current) drug therapy; Z79.82 Long term (current) use of aspirin; Z88.0 Allergy status to penicillin; Z91.018 Allergy to other foods

== ENCOUNTER 2017-01-06 06:47 | Outpatient (RCR) | payer OTHER ==
[2017-01-28] MEDS ORDERED: VITA200038 PO (18:38)
[2017-01-28] MEDS ORDERED: XARE20TA PO (18:38)
[2017-01-28] MEDS ORDERED: LISI20TA PO (18:38)
[2017-01-28] MEDS ORDERED: PANT40TA2 PO (18:38)
[2017-01-28] MEDS ORDERED: VITA500T PO (18:38)
[2017-01-28] MEDS ORDERED: MAGN500C PO (18:38)
[2017-01-28] MEDS ORDERED: VITA200028 PO (18:38)
== END 2017-02-01 ==
LOC: M PT 06:47
PROVIDERS: ATTEND Nurse Practitioner Family
DX: Z51.89 Encounter for other specified aftercare (principal); G60.9 Hereditary and idiopathic neuropathy, unspecified; Z86.69 Personal history of other diseases of the nervous system and sense organs

== ENCOUNTER 2017-01-28 17:57 | Emergency (ER) | payer OTHER ==
[~2017-01-28] VITALS: Ht 190.5 cm; Wt 176.4 kg
[2017-01-28] MEDS ORDERED: LISI20TA PO (18:38)
[2017-01-28] MEDS ORDERED: XARE20TA PO (18:38)
[2017-01-28] MEDS ORDERED: VITA200038 PO (18:38)
[2017-01-28] MEDS ORDERED: VITA200028 PO (18:38)
[2017-01-28] MEDS ORDERED: PANT40TA2 PO (18:38)
[2017-01-28] MEDS ORDERED: VITA500T PO (18:38)
[2017-01-28] MEDS ORDERED: MAGN500C PO (18:38)
--- NOTE | 2017-01-28 19:01 | REP ---
CHEST, PORTABLE: AP portable view of the chest is performed. There is no acute infiltrate. Heart does not appear to be significantly enlarged. Mediastinal silhouette is unchanged. Right central venous catheter is again noted. IMPRESSION: No acute infiltrate. Signed by Zion Maxwell MD 01/28/2017 07:15 P
--- NOTE | 2017-01-28 19:15 | ECGEPIP ---
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
[2017-01-28 19:25] LABS: INR 1.08
[2017-01-28 19:32] LABS: ALBUMIN 3.3 GM/DL (3.2-5.2); ALBUMIN/GLOBULIN RATIO 0.85 (1.00-1.93); ALKALINE PHOSPHATASE 109 U/L (45-117); ALT/SGPT 64 U/L (12-78); ANION GAP 7 MEQ/L (8-16); AST/SGOT 28 U/L (15-37); BILIRUBIN,DIRECT 0.1 MG/DL (0.0-0.2); BILIRUBIN,TOTAL 0.3 MG/DL (0.2-1.0); BLOOD UREA NITROGEN 12 MG/DL (7-18); CARBON DIOXIDE LEVEL 29 MEQ/L (21-32); CHLORIDE LEVEL 95 MEQ/L (98-107); CREATININE FOR GFR 0.95 MG/DL (0.70-1.30); GLOMERULAR FILTRATION RATE > 60.0 (>60); GLUCOSE, FASTING 104 MG/DL (70-105); POTASSIUM SERUM 3.6 MEQ/L (3.5-5.1); SODIUM LEVEL 131 MEQ/L (136-145); TOTAL PROTEIN 7.2 GM/DL (6.4-8.2)
[2017-01-28 19:33] LABS: BASO # 0.1 K/mm3 (0.0-0.2); BASO % 0.5 % (0.0-1.0); EOS # 0.2 K/mm3 (0.0-0.50); EOS % 1.6 % (0.0-3.0); LARGE UNSTAINED CELL # 0.3 K/mm3 (0.0-0.4); LARGE UNSTAINED CELL % 2.2 % (0.0-4.0); LYMPH # 3.2 K/mm3 (1.5-4.5); LYMPH % 23.2 % (24.0-44.0); MEAN CORPUSCULAR HEMOGLOBIN 31.2 pg (27.0-33.0); MEAN CORPUSCULAR VOLUME 94.5 fl (80.0-96.0); MONO % 7.6 % (0.0-5.0); NEUTROPHILS # 8.1 K/mm3 (1.8-7.7); PLATELET COUNT, AUTOMATED 187 k/mm3 (150-450); RED CELL DISTRIBUTION WIDTH 13.8 % (11.5-14.5); WHITE BLOOD COUNT 12.5 K/mm3 (4.0-10.0)
--- NOTE | 2017-01-28 19:40 | REPUSA ---
CLINICAL HISTORY: Weakness. TECHNIQUE: Multiple axial brain CT scan sections were obtained from base to vertex without contrast a dministration. COMMENTS: The study shows normal configuration of sella turcica. There are no intra or extra-axial collections. There is no mass effect or midline shift. There is no evidence of hematoma formation. No hydrocephal us is present. No abnormal calcifications are noted. Cavum septum pellucidum and vergae is seen. No significant abnormalities are seen either in the posterior fossa or supratentorial compartment. The sinuses and mastoid air cells are patent. IMPRESSION: No evidence of acute intracranial pathology. Cavum septum pellucidum and vergae. Thank you for your kind referral of this patient.
[2017-01-28] MEDS ORDERED: HYDROmorphone HCL 1 MG/ML SYRINGE (J1170) IV ONE ×3 (20:00→23:45)
[2017-01-28] MEDS ORDERED: ISOVUE-370 76% 100ML VIAL (Q9967) As Ordered ONE (20:09)
--- NOTE | 2017-01-28 22:00 | REPUSA ---
CT angiogram of the chest Clinical statement: Chest pain and shortness of breath. Technique: Multiple axial CT images were obtained from the thoracic inlet through the upper abdomen a fter a bolus administration of nonionic intravenous contrast. Coronal and sagittal reconstructions we re also obtained. No comparison is available. Findings: The pulmonary arteries are well-opacified with contrast, with no intraluminal filling defec ts to suggest embolism. The thoracic aorta is unremarkable. Thyroid gland is within normal limits. Th ere is no thoracic lymphadenopathy. There are no pericardial or pleural effusions. The lungs are vince r. Limited imaging of the upper abdomen is unremarkable. There are no suspicious osseous lesions. Impression: Unremarkable CT examination of the chest. No evidence of pulmonary embolism.
--- NOTE | 2017-01-28 22:10 | REPUSA ---
CT of the abdomen and pelvis with contrast Clinical statement: Pain. Technique: Multiple axial CT images were obtained from the base of the lungs through the floor of the pelvis utilizing 5 mm axial slices after administration of nonionic intravenous contrast. Coronal an d sagittal reconstructions were also obtained. No comparison is available. Findings: Chest: The visualized lung bases are clear. Abdomen: The liver, spleen, pancreas, kidneys, gallbladder, and adrenal glands are unremarkable. The aorta is within normal limits. There is no evidence of abdominal lymphadenopathy or ascites. Pelvis: The bowel is unremarkable, with no obstructive or inflammatory changes. The appendix is maxx l. The urinary bladder is within normal limits. The other pelvic structures appear grossly intact. Th ere is no evidence of pelvic lymphadenopathy or ascites. There is a small umbilical hernia appreciate d. Bones: There are no suspicious osseous abnormalities seen. Impression: 1. No obstructive or inflammatory bowel changes. 2. The kidneys appear unremarkable. 3. Small umbilical hernia containing only omental fat.
[2017-01-29 00:30] VITALS: BP 112/59
== END 2017-01-29 00:45 | disposition home or self-care (01) ==
LOC: M ED 17:57 → EDBD 17:57 → M ED 01-29 00:45
DX: K29.00 Acute gastritis without bleeding (principal); M94.0 Chondrocostal junction syndrome [Tietze]; R00.0 Tachycardia, unspecified; I25.10 Atherosclerotic heart disease of native coronary artery without angina pectoris; I50.9 Heart failure, unspecified; F17.210 Nicotine dependence, cigarettes, uncomplicated; Z79.899 Other long term (current) drug therapy; Z79.82 Long term (current) use of aspirin; Z79.02 Long term (current) use of antithrombotics/antiplatelets
CPT/HCPCS: 36415; 70450; 71010; 71275; 74177; 80048; 80076; 82550; 82553; 83605; 83880; 84443; 85025; 85610; 93000; 93041; 94760; 96374; 96376; 99284; J1170; Q9967

== ENCOUNTER 2017-02-03 14:24 | Emergency (ER) | payer OTHER ==
[~2017-02-03 14:24] MED LIST changes: +LISI20TA PO; +MAGN500C PO; +PANT40TA2 PO; +VITA200028 PO; +VITA200038 PO; +VITA500T PO; +XARE20TA PO
[2017-02-03 14:25] VITALS: BP 115/69
[2017-02-03] MEDS ORDERED: PEPT262T2 PO (14:37)
[2017-02-03] MEDS ORDERED: SODIUM CHLORIDE 0.9% INJ 10 ML SYR IV ONE (15:45)
--- NOTE | 2017-02-04 21:26 | ECGEPIP ---
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
== END 2017-02-03 16:10 | disposition left against medical advice (07) ==
LOC: M ED 14:24
DX: G89.4 Chronic pain syndrome (principal); I12.9 Hypertensive chronic kidney disease with stage 1 through stage 4 chronic kidney disease, or unspecified chronic kidney disease; I25.10 Atherosclerotic heart disease of native coronary artery without angina pectoris; I48.91 Unspecified atrial fibrillation; E66.01 Morbid (severe) obesity due to excess calories; G61.0 Guillain-Barre syndrome; F17.200 Nicotine dependence, unspecified, uncomplicated; Z95.5 Presence of coronary angioplasty implant and graft; Z79.82 Long term (current) use of aspirin; Z79.899 Other long term (current) drug therapy; Z88.0 Allergy status to penicillin; Z88.8 Allergy status to other drugs, medicaments and biological substances; Z91.018 Allergy to other foods

== ENCOUNTER 2017-02-05 16:19 | Emergency (ER) | payer OTHER ==
[~2017-02-05] VITALS: Ht 190.5 cm; Wt 177.3 kg
[~2017-02-05 16:19] MED LIST changes: +PEPT262T2 PO
[2017-02-05 18:05] LABS: BASO # 0.1 K/mm3 (0.0-0.2); EOS # 0.2 K/mm3 (0.0-0.50); EOS % 1.7 % (0.0-3.0); LARGE UNSTAINED CELL # 0.2 K/mm3 (0.0-0.4); LARGE UNSTAINED CELL % 1.7 % (0.0-4.0); LYMPH # 2.2 K/mm3 (1.5-4.5); LYMPH % 17.6 % (24.0-44.0); MEAN CORPUSCULAR HEMOGLOBIN 31.7 pg (27.0-33.0); MEAN CORPUSCULAR HGB CONC 33.6 g/dl (32.0-36.5); MEAN CORPUSCULAR VOLUME 94.2 fl (80.0-96.0); MONO # 0.8 K/mm3 (0.0-0.8); MONO % 6.5 % (0.0-5.0); NEUTROPHILS % 71.5 % (36.0-66.0); PLATELET COUNT, AUTOMATED 228 k/mm3 (150-450); RED CELL DISTRIBUTION WIDTH 13.2 % (11.5-14.5); WHITE BLOOD COUNT 12.6 K/mm3 (4.0-10.0)
[2017-02-05 18:13] LABS: INR 0.92
[2017-02-05 18:30] LABS: ALBUMIN 3.4 GM/DL (3.2-5.2); ALBUMIN/GLOBULIN RATIO 0.76 (1.00-1.93); ALKALINE PHOSPHATASE 115 U/L (45-117); ALT/SGPT 65 U/L (12-78); ANION GAP 11 MEQ/L (8-16); AST/SGOT 39 U/L (15-37); BILIRUBIN,DIRECT < 0.1 MG/DL (0.0-0.2); BILIRUBIN,TOTAL 0.3 MG/DL (0.2-1.0); BLOOD UREA NITROGEN 12 MG/DL (7-18); CALCIUM LEVEL 8.7 MG/DL (8.5-10.1); CARBON DIOXIDE LEVEL 29 MEQ/L (21-32); CHLORIDE LEVEL 100 MEQ/L (98-107); CREATININE FOR GFR 0.86 MG/DL (0.70-1.30); GLOMERULAR FILTRATION RATE > 60.0 (>60); GLUCOSE, FASTING 104 MG/DL (70-105); SODIUM LEVEL 140 MEQ/L (136-145); TOTAL PROTEIN 7.9 GM/DL (6.4-8.2)
[2017-02-05] MEDS ORDERED: methylPREDNISolone INJ 125 MG/2 ML VIAL (J2930) IV ONE (19:15)
--- NOTE | 2017-02-05 19:21 | REP ---
AP lateral chest: 02/05/2017: Clinical history: Chest pain. Comparison: Portable chest and CT angiogram chest 01/28/2017. Findings: There is an indwelling right jugular port catheter with the appearing to go into the right atrium. Lungs are adequately inflated. Some underlying interstitial change but no cardiomegaly, vascular redistribution or pulmonary edema. Aorta and airway intact. No widened mediastinum. Impression: 1. No infiltrate, effusion, cardiomegaly, edema. There is an indwelling right jugular catheter but no other acute finding. Signed by Gonzalo Levine MD 02/05/2017 10:32 P
[2017-02-05] MEDS: IPRATROPIUM 0.5MG/ALBUTEROL 2.5MG INH SOL UD 3ML (DUONEB)(J7620) NEB SCH ×3 (19:46→20:02)
[2017-02-05] MEDS: HYDROmorphone HCL 1 MG/ML SYRINGE (J1170) IV PRN ×2 (19:50→20:51)
[2017-02-05] MEDS ORDERED: BACTRIM 160MG/800MG DS TAB PO ONE (22:15)
[2017-02-05] MEDS ORDERED: PRED20TA PO (22:15)
[2017-02-05] MEDS ORDERED: HYDROmorphone HCL 1 MG/ML SYRINGE (J1170) IV ONE (22:15)
[2017-02-05] MEDS ORDERED: BACT800T5 PO (22:15)
[2017-02-05 22:40] VITALS: BP 160/98
--- NOTE | 2017-02-06 09:59 | ECGEPIP ---
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
== END 2017-02-05 23:02 | disposition home or self-care (01) ==
LOC: M ED 16:19
DX: L03.116 Cellulitis of left lower limb (principal); J44.1 Chronic obstructive pulmonary disease with (acute) exacerbation; I10 Essential (primary) hypertension; I48.91 Unspecified atrial fibrillation; F17.200 Nicotine dependence, unspecified, uncomplicated; Z82.49 Family history of ischemic heart disease and other diseases of the circulatory system; Z79.82 Long term (current) use of aspirin; Z88.0 Allergy status to penicillin; Z88.6 Allergy status to analgesic agent; Z88.8 Allergy status to other drugs, medicaments and biological substances; Z91.018 Allergy to other foods
CPT/HCPCS: 71020; 80048; 80076; 82550; 82553; 83690; 83880; 85025; 85610; 85730; 86140; 87040; 93000; 93041; 94640; 96374; 96375; 96376; 99284; J1170; J2930

== ENCOUNTER → 2017-03-11 | Outpatient (CLI) | payer OTHER ==
[~2017-03-11] MED LIST changes: +BACT800T5 PO; +PRED20TA PO
--- NOTE | 2017-03-11 18:39 | ECHO ---
DATE OF PROCEDURE: 03/11/2017 REFERRING PHYSICIAN: Shalini Calabrese INDICATION: Heart murmur. Study was done on an outpatient basis. HEIGHT: 191 cm WEIGHT: 179 kg DIMENSIONS : IVS: 1.3 LV: 4.6 LVPW: 1.3 LA: 3.4 Aorta: 3.5 FINDINGS: The study is of rather limited technical quality corresponding to patients body habitus. Patient was in sinus rhythm during the study. Left ventricle is of normal size and contractility, I estimate ejection faction (EF) around 65%. Mild left ventricular hypertrophy (LVH). Right ventricle was poorly seen but appears grossly normal. Both atria appear grossly normal, based on limited views. The aortic, mitral and tricuspid valves all appear grossly normal. Pulmonic valve was not well seen. No pericardial effusion is noted. Inferior vena cava is dilated but has some collapse with respiration indicative of likely mildly elevated central venous pressure (CVP). Doppler interrogation reveals no aortic stenosis or insufficiency. There is also no mitral or tricuspid insufficiency. Mitral inflow pattern and tissue Doppler imaging of mitral annulus revealed normal diastolic function (E prime velocities of septal and lateral mitral annulus are 8.0 and 11.0 cm/s respectively.) CONCLUSIONS: 1. Study is of very limited technical quality corresponding to patients body habitus. 2. Normal left ventricle (LV) size with mild LVH and preserved LV systolic and diastolic function. 3. No significant valvular disease. 4. Probably at least mildly elevated central venous pressure. 5. Unable to estimate pulmonary artery pressure. COMMENT: Subacute bacterial endocarditis (SBE) prophylaxis not recommended. [facility]
== END ==
LOC: M CARPUL 08:52
PROVIDERS: ATTEND Internal Medicine Interventional Cardiology
DX: R01.1 Cardiac murmur, unspecified (principal)

== ENCOUNTER → 2017-03-31 | Outpatient (CLI) | payer OTHER | LOC: M PT 13:05 | PROVIDERS: ATTEND Family Medicine Addiction Medicine | DX: G89.4 Chronic pain syndrome (principal); G60.9 Hereditary and idiopathic neuropathy, unspecified; M51.36 Other intervertebral disc degeneration, lumbar region; Z86.69 Personal history of other diseases of the nervous system and sense organs ==

== ENCOUNTER 2017-05-17 14:31 | Emergency (ER) | payer OTHER ==
[~2017-05-17] VITALS: Ht 190.5 cm; Wt 180.9 kg
[2017-05-17] MEDS ORDERED: NS 1,000 ML IV SCH (14:48)
[2017-05-17] MEDS ORDERED: NITROGLYCERIN 0.4 MG SUBL TABLET SL PRN (15:00)
[2017-05-17 16:41] VITALS: BP 124/76
[2017-05-17 16:51] LABS: VENOUS BASE EXCESS 2.3 (-2.0-2.0); VENOUS O2 SATURATION 89.5 % (60.0-80.0); VENOUS PARTIAL PRESSURE CO2 49.9 mmHg (38.0-50.0); VENOUS PARTIAL PRESSURE O2 53.3 mmHg (30.0-50.0); VENOUS STANDARD HCO3 26.2 MEQ/L
--- NOTE | 2017-05-17 16:51 | REP ---
Chest one-view HISTORY: Chest pain Comparison: 02/05/2017 The lungs are clear. The heart is normal in size. The pulmonary vasculature is normal in appearance. An Iujbqb-T-Mqbd catheter is present. Impression: No acute disease. Signed by Anthony Mayo MD 05/17/2017 04:41 P
[2017-05-17 16:56] LABS: BASO # 0.1 10^3/uL (0.0-0.2); BASO % 0.6 % (0.0-1.0); EOS # 0.2 10^3/uL (0.0-0.50); EOS % 1.6 % (0.0-3.0); IMMATURE GRANULOCYTE % 0.4 % (0-0); LYMPH % 30.9 % (24.0-44.0); MEAN CORPUSCULAR HEMOGLOBIN 31.7 pg (27.0-33.0); MEAN CORPUSCULAR HGB CONC 33.9 g/dl (32.0-36.5); MEAN CORPUSCULAR VOLUME 93.5 fl (80.0-96.0); MONO # 0.9 10^3/uL (0.0-0.8); MONO % 9.2 % (0.0-5.0); NEUTROPHILS # 5.6 10^3/uL (1.8-7.7); NEUTROPHILS % 57.3 % (36.0-66.0); PLATELET COUNT, AUTOMATED 186 10^3/uL (150-450); WHITE BLOOD COUNT 9.8 10^3/uL (4.0-10.0)
[2017-05-17 17:16] LABS: INR 0.96
[2017-05-17 17:25] LABS: ANION GAP 7 MEQ/L (8-16); BLOOD UREA NITROGEN 10 MG/DL (7-18); CALCIUM LEVEL 9.1 MG/DL (8.5-10.1); CARBON DIOXIDE LEVEL 27 MEQ/L (21-32); CHLORIDE LEVEL 103 MEQ/L (98-107); CREATININE FOR GFR 0.62 MG/DL (0.70-1.30); GLOMERULAR FILTRATION RATE > 60.0 (>60); GLUCOSE, FASTING 87 MG/DL (70-105); SODIUM LEVEL 137 MEQ/L (136-145)
[2017-05-17] MEDS ORDERED: PERCOCET 5MG/325MG TAB PO ONE (18:00)
[2017-05-17 18:19] VITALS: BP 147/96
--- NOTE | 2017-05-17 18:35 | ECGEPIP ---
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
== END 2017-05-17 18:25 | disposition home or self-care (01) ==
LOC: M ED 14:31
DX: R07.89 Other chest pain (principal); I50.9 Heart failure, unspecified; E11.9 Type 2 diabetes mellitus without complications; I11.0 Hypertensive heart disease with heart failure; E78.5 Hyperlipidemia, unspecified; F17.210 Nicotine dependence, cigarettes, uncomplicated; I25.2 Old myocardial infarction; Z79.52 Long term (current) use of systemic steroids; Z79.899 Other long term (current) drug therapy; Z79.82 Long term (current) use of aspirin; Z79.01 Long term (current) use of anticoagulants; Z88.8 Allergy status to other drugs, medicaments and biological substances; Z88.0 Allergy status to penicillin; Z91.018 Allergy to other foods; Z86.73 Personal history of transient ischemic attack (TIA), and cerebral infarction without residual deficits; Z82.49 Family history of ischemic heart disease and other diseases of the circulatory system

== ENCOUNTER 2017-07-23 13:06 | Emergency (ER) | payer OTHER ==
[2017-07-23 15:57] LABS: BASO % 0.3 % (0.0-1.0); EOS # 0.1 10^3/uL (0.0-0.50); EOS % 1.3 % (0.0-3.0); HEMATOCRIT 40.6 % (42.0-52.0); HEMOGLOBIN 13.5 g/dl (14.0-18.0); IMMATURE GRANULOCYTE % 0.4 % (0-0); LYMPH # 2.1 10^3/uL (1.5-4.5); LYMPH % 23.3 % (24.0-44.0); MEAN CORPUSCULAR HEMOGLOBIN 30.9 pg (27.0-33.0); MEAN CORPUSCULAR HGB CONC 33.3 g/dl (32.0-36.5); MEAN CORPUSCULAR VOLUME 92.9 fl (80.0-96.0); MONO # 0.9 10^3/uL (0.0-0.8); MONO % 9.9 % (0.0-5.0); NEUTROPHILS # 5.9 10^3/uL (1.8-7.7); NEUTROPHILS % 64.8 % (36.0-66.0); PLATELET COUNT, AUTOMATED 193 10^3/uL (150-450); RED BLOOD COUNT 4.37 10^6/uL (4.30-6.10); RED CELL DISTRIBUTION WIDTH 12.7 % (11.5-14.5); WHITE BLOOD COUNT 9.2 10^3/uL (4.0-10.0)
[2017-07-23] MEDS: NS 1,000 ML IV (16:14)
[2017-07-23] MEDS: METOCLOPRAMIDE INJ 10MG/2ML VIAL (J2765) IV (16:20)
[2017-07-23 16:27] LABS: ANION GAP 6 MEQ/L (8-16); BLOOD UREA NITROGEN 10 MG/DL (7-18); CALCIUM LEVEL 8.3 MG/DL (8.5-10.1); CARBON DIOXIDE LEVEL 31 MEQ/L (21-32); CHLORIDE LEVEL 104 MEQ/L (98-107); CREATININE FOR GFR 0.69 MG/DL (0.70-1.30); GLOMERULAR FILTRATION RATE > 60.0 (>60); GLUCOSE, FASTING 100 MG/DL (70-105); POTASSIUM SERUM 3.9 MEQ/L (3.5-5.1); SODIUM LEVEL 141 MEQ/L (136-145)
[2017-07-23] MEDS: IPRATROPIUM 0.5MG/ALBUTEROL 2.5MG INH SOL UD 3ML (DUONEB)(J7620) NEB (16:54)
[2017-07-23] MEDS: GI COCKTAIL 50ML BTL(HYOSCYAMINE/MAALOX/LIDOCAINE VISCOUS)(1:3:1) PO (17:00)
[2017-07-23] MEDS: ACETAMINOPHEN 325 MG TAB PO (17:00)
== END 2017-07-23 18:31 | disposition home or self-care (01) ==
LOC: M ED 13:06
DX: G44.209 Tension-type headache, unspecified, not intractable (principal); K21.9 Gastro-esophageal reflux disease without esophagitis; F17.210 Nicotine dependence, cigarettes, uncomplicated; Z79.01 Long term (current) use of anticoagulants; Z79.82 Long term (current) use of aspirin; Z79.52 Long term (current) use of systemic steroids; Z79.899 Other long term (current) drug therapy; Z88.0 Allergy status to penicillin; Z91.048 Other nonmedicinal substance allergy status
CPT/HCPCS: J2765

== ENCOUNTER 2017-07-25 23:19 | Emergency (ER) | payer OTHER | END 2017-07-26 01:17 | disposition home or self-care (01) | LOC: M ED 23:19 | DX: Z60.9 Problem related to social environment, unspecified (principal); M54.9 Dorsalgia, unspecified; G89.29 Other chronic pain; I50.9 Heart failure, unspecified; G24.01 Drug induced subacute dyskinesia; F33.9 Major depressive disorder, recurrent, unspecified; Z79.82 Long term (current) use of aspirin; Z79.01 Long term (current) use of anticoagulants; Z79.899 Other long term (current) drug therapy; Z79.52 Long term (current) use of systemic steroids; Z88.8 Allergy status to other drugs, medicaments and biological substances; Z88.0 Allergy status to penicillin; Z91.018 Allergy to other foods; Z87.891 Personal history of nicotine dependence; Z87.448 Personal history of other diseases of urinary system | CPT/HCPCS: 99282 ==

== ENCOUNTER 2017-08-17 12:09 | Emergency (ER) | payer OTHER ==
[2017-08-17] MEDS ORDERED: SODIUM CHLORIDE 0.9% INJ 10 ML SYR IV (13:45)
[2017-08-17 13:57] LABS: HEMATOCRIT 42.4 % (42.0-52.0); HEMOGLOBIN 14.2 g/dl (14.0-18.0); MEAN CORPUSCULAR HEMOGLOBIN 30.7 pg (27.0-33.0); MEAN CORPUSCULAR HGB CONC 33.5 g/dl (32.0-36.5); MEAN CORPUSCULAR VOLUME 91.8 fl (80.0-96.0); PLATELET COUNT, AUTOMATED 190 10^3/uL (150-450); RED BLOOD COUNT 4.62 10^6/uL (4.30-6.10); RED CELL DISTRIBUTION WIDTH 13.3 % (11.5-14.5); WHITE BLOOD COUNT 10.9 10^3/uL (4.0-10.0)
[2017-08-17 14:21] LABS: AMPHETAMINES LEVEL URINE NEGATIVE (NEGATIVE); BARBITURATES URINE NEGATIVE (NEGATIVE); BENZODIAZEPINES URINE POSITIVE (NEGATIVE); CANNABINOIDS URINE NEGATIVE (NEGATIVE); COCAINE METABOLITE URINE NEGATIVE (NEGATIVE); METHADONE URINE NEGATIVE (NEGATIVE); OPIATES URINE NEGATIVE (NEGATIVE); PHENCYCLIDINE URINE NEGATIVE (NEGATIVE)
[2017-08-17 14:29] LABS: ACETAMINOPHEN LEVEL < 2.0 UG/ML (10.0-30.0); ALBUMIN 3.7 GM/DL (3.2-5.2); ALKALINE PHOSPHATASE 109 U/L (45-117); ALT/SGPT 44 U/L (12-78); ANION GAP 11 MEQ/L (8-16); AST/SGOT 21 U/L (7-37); BILIRUBIN,DIRECT 0.1 MG/DL (0.0-0.2); BILIRUBIN,TOTAL 0.3 MG/DL (0.2-1.0); BLOOD UREA NITROGEN 10 MG/DL (7-18); CALCIUM LEVEL 8.9 MG/DL (8.5-10.1); CARBON DIOXIDE LEVEL 26 MEQ/L (21-32); CHLORIDE LEVEL 100 MEQ/L (98-107); CREATININE FOR GFR 0.86 MG/DL (0.70-1.30); ETHYL ALCOHOL (ETHANOL) < 0.003 % (0.000-0.010); GLOMERULAR FILTRATION RATE > 60.0 (>60); GLUCOSE, FASTING 116 MG/DL (70-100); POTASSIUM SERUM 3.7 MEQ/L (3.5-5.1); SALICYLATE LEVEL 2.1 MG/DL (5.0-30.0); SODIUM LEVEL 137 MEQ/L (136-145); TOTAL PROTEIN 7.4 GM/DL (6.4-8.2)
== END 2017-08-17 17:06 | disposition home or self-care (01) ==
LOC: M ED 12:09
DX: F43.10 Post-traumatic stress disorder, unspecified (principal); Z04.6 Encounter for general psychiatric examination, requested by authority; I50.9 Heart failure, unspecified; N18.9 Chronic kidney disease, unspecified; E66.9 Obesity, unspecified; F17.210 Nicotine dependence, cigarettes, uncomplicated; Z59.0 Homelessness; Z79.899 Other long term (current) drug therapy; Z79.52 Long term (current) use of systemic steroids; Z79.82 Long term (current) use of aspirin; Z79.01 Long term (current) use of anticoagulants; Z88.8 Allergy status to other drugs, medicaments and biological substances; Z88.0 Allergy status to penicillin; Z91.018 Allergy to other foods; Z99.3 Dependence on wheelchair
CPT/HCPCS: 80320

== ENCOUNTER 2017-10-02 19:46 | Emergency (ER) | payer OTHER ==
[2017-10-02] MEDS: CLINDAMYCIN 150 MG CAP PO (21:12)
[2017-10-02] MEDS: PERCOCET 5MG/325MG TAB PO (21:12)
== END 2017-10-02 21:18 | disposition home or self-care (01) ==
LOC: M ED 19:46
DX: L03.114 Cellulitis of left upper limb (principal); F41.9 Anxiety disorder, unspecified; E16.2 Hypoglycemia, unspecified; N19 Unspecified kidney failure; Z95.5 Presence of coronary angioplasty implant and graft; Z86.73 Personal history of transient ischemic attack (TIA), and cerebral infarction without residual deficits; Z79.01 Long term (current) use of anticoagulants; F17.210 Nicotine dependence, cigarettes, uncomplicated
CPT/HCPCS: 99283

== ENCOUNTER 2017-10-30 23:27 | Emergency (ER) | payer OTHER ==
[2017-10-31 01:24] LABS: BASO # 0.1 10^3/uL (0.0-0.2); BASO % 0.5 % (0.0-1.0); EOS # 0.2 10^3/uL (0.0-0.50); EOS % 1.8 % (0.0-3.0); HEMATOCRIT 41.8 % (42.0-52.0); HEMOGLOBIN 13.9 g/dl (13.5-17.5); IMMATURE GRANULOCYTE % 0.5 % (0-3.0); LYMPH % 30.4 % (24.0-44.0); MEAN CORPUSCULAR HGB CONC 33.3 g/dl (32.0-36.5); MEAN CORPUSCULAR VOLUME 93.1 fl (80.0-96.0); MONO % 10.2 % (0.0-5.0); NEUTROPHILS # 5.6 10^3/uL (1.8-7.7); NEUTROPHILS % 56.6 % (36.0-66.0); PLATELET COUNT, AUTOMATED 188 10^3/uL (150-450); RED BLOOD COUNT 4.49 10^6/uL (4.30-6.10); RED CELL DISTRIBUTION WIDTH 13.5 % (11.5-14.5); WHITE BLOOD COUNT 9.9 10^3/uL (4.0-10.0)
[2017-10-31] MEDS: KETOROLAC 30 MG/ML VIAL (J1885) IV (01:27)
[2017-10-31] MEDS: HYDROmorphone HCL 1 MG/ML SYRINGE (J1170) IV ×2 (01:28→02:17)
[2017-10-31 01:49] LABS: ANION GAP 5 MEQ/L (8-16); BLOOD UREA NITROGEN 9 MG/DL (7-18); CARBON DIOXIDE LEVEL 29 MEQ/L (21-32); CHLORIDE LEVEL 104 MEQ/L (98-107); CK-MB VALUE MASS 2.3 NG/ML (<3.6); CPK CREATINE PHOSPHOKINASE 136 U/L (39-308); CREATININE FOR GFR 0.71 MG/DL (0.70-1.30); GLOMERULAR FILTRATION RATE > 60.0 (>60); GLUCOSE, FASTING 96 MG/DL (70-100); MB/CK RELATIVE INDEX 1.69 (< OR =4); POTASSIUM SERUM 3.9 MEQ/L (3.5-5.1); SODIUM LEVEL 138 MEQ/L (136-145); TROPONIN I 0.09 NG/ML (< 0.10)
[2017-10-31] MEDS: hydroCHLOROthiazide 12.5 MG CAPSULE PO (02:30)
[2017-10-31] MEDS: LISINOPRIL 20 MG TAB PO (02:30)
[2017-10-31] MEDS: SODIUM CHLORIDE 0.9% INJ 10 ML SYR IV (02:59)
[2017-10-31] MEDS ORDERED: SODIUM CHLORIDE 0.9% INJ 10 ML SYR IV (09:00)
== END 2017-10-31 03:08 | disposition home or self-care (01) ==
LOC: M ED 23:27
DX: Z76.0 Encounter for issue of repeat prescription (principal); R07.9 Chest pain, unspecified; E66.01 Morbid (severe) obesity due to excess calories; I25.10 Atherosclerotic heart disease of native coronary artery without angina pectoris; I10 Essential (primary) hypertension; E78.5 Hyperlipidemia, unspecified; G89.29 Other chronic pain; Z79.01 Long term (current) use of anticoagulants; Z79.899 Other long term (current) drug therapy; Z82.49 Family history of ischemic heart disease and other diseases of the circulatory system; Z88.8 Allergy status to other drugs, medicaments and biological substances; Z88.0 Allergy status to penicillin; Z91.018 Allergy to other foods
CPT/HCPCS: J1170

== ENCOUNTER 2017-11-10 19:42 | Emergency (ER) | payer OTHER ==
[2017-11-10 21:24] LABS: BASO # 0.1 10^3/uL (0.0-0.2); BASO % 0.5 % (0.0-1.0); EOS # 0.2 10^3/uL (0.0-0.50); HEMATOCRIT 40.3 % (42.0-52.0); HEMOGLOBIN 13.3 g/dl (13.5-17.5); IMMATURE GRANULOCYTE % 0.5 % (0-3.0); LYMPH % 27.6 % (24.0-44.0); MEAN CORPUSCULAR HEMOGLOBIN 30.9 pg (27.0-33.0); MEAN CORPUSCULAR VOLUME 93.7 fl (80.0-96.0); MONO # 0.9 10^3/uL (0.0-0.8); MONO % 8.2 % (0.0-5.0); NEUTROPHILS # 6.6 10^3/uL (1.8-7.7); NEUTROPHILS % 61.2 % (36.0-66.0); PLATELET COUNT, AUTOMATED 169 10^3/uL (150-450); RED CELL DISTRIBUTION WIDTH 13.2 % (11.5-14.5); WHITE BLOOD COUNT 10.7 10^3/uL (4.0-10.0)
[2017-11-10 21:37] LABS: VENOUS BASE EXCESS -0.4 (-2.0-2.0); VENOUS HCO3 25.2 MEQ/L (23.0-27.0); VENOUS O2 SATURATION 85.1 % (60.0-80.0); VENOUS PARTIAL PRESSURE CO2 45.3 mmHg (38.0-50.0); VENOUS PARTIAL PRESSURE O2 48.8 mmHg (30.0-50.0); VENOUS PH 7.364 UNITS (7.330-7.430); VENOUS STANDARD HCO3 23.8 MEQ/L; VENOUS TOTAL CO2 26.6 MEQ/L (24.0-28.0)
[2017-11-10 21:52] LABS: ANION GAP 4 MEQ/L (8-16); BLOOD UREA NITROGEN 9 MG/DL (7-18); CARBON DIOXIDE LEVEL 30 MEQ/L (21-32); CHLORIDE LEVEL 104 MEQ/L (98-107); CK-MB VALUE MASS 1.5 NG/ML (<3.6); CPK CREATINE PHOSPHOKINASE 185 U/L (39-308); GLOMERULAR FILTRATION RATE > 60.0 (>60); GLUCOSE, FASTING 90 MG/DL (70-100); MB/CK RELATIVE INDEX 0.81 (< OR =4); NT-PRO BNP 79 PG/ML (<125); POTASSIUM SERUM 3.8 MEQ/L (3.5-5.1); SODIUM LEVEL 138 MEQ/L (136-145); TROPONIN I < 0.02 NG/ML (< 0.10)
[2017-11-10] MEDS: ONDANSETRON 4MG/2ML VIAL (J2405) IV (21:56)
[2017-11-10] MEDS: HYDROmorphone HCL 1 MG/ML SYRINGE (J1170) IV ×2 (21:56→22:51)
[2017-11-10] MEDS: methylPREDNISolone INJ 125 MG/2 ML VIAL (J2930) IV (22:43)
[2017-11-11] MEDS ORDERED: SODIUM CHLORIDE 0.9% INJ 10 ML SYR IV (09:00)
== END 2017-11-10 23:55 | disposition home or self-care (01) ==
LOC: M ED 23:55
DX: J44.9 Chronic obstructive pulmonary disease, unspecified (principal); I10 Essential (primary) hypertension; I25.10 Atherosclerotic heart disease of native coronary artery without angina pectoris; Z86.73 Personal history of transient ischemic attack (TIA), and cerebral infarction without residual deficits; Z79.899 Other long term (current) drug therapy; Z79.01 Long term (current) use of anticoagulants; Z88.0 Allergy status to penicillin; Z88.8 Allergy status to other drugs, medicaments and biological substances; Z91.018 Allergy to other foods; F17.210 Nicotine dependence, cigarettes, uncomplicated
CPT/HCPCS: J1170

== ENCOUNTER 2017-12-31 12:55 | Emergency (ER) | payer OTHER ==
[2017-12-31] MEDS: LABETALOL HCL 100 MG/20 ML VIAL IV (13:51)
[2017-12-31] MEDS: METOPROLOL TART 25 MG TABLET PO (14:00)
[2017-12-31] MEDS: NS 1,000 ML IV (14:29)
[2017-12-31] MEDS: METOCLOPRAMIDE INJ 10MG/2ML VIAL (J2765) IV (14:29)
[2017-12-31 14:33] LABS: BASO % 0.4 % (0.0-1.0); EOS # 0.1 10^3/uL (0.0-0.50); EOS % 0.7 % (0.0-3.0); HEMATOCRIT 43.1 % (42.0-52.0); HEMOGLOBIN 14.4 g/dl (13.5-17.5); IMMATURE GRANULOCYTE % 0.4 % (0-3.0); LYMPH # 2.4 10^3/uL (1.5-4.5); LYMPH % 22.1 % (24.0-44.0); MEAN CORPUSCULAR HEMOGLOBIN 31.4 pg (27.0-33.0); MEAN CORPUSCULAR HGB CONC 33.4 g/dl (32.0-36.5); MEAN CORPUSCULAR VOLUME 94.1 fl (80.0-96.0); MONO # 1.1 10^3/uL (0.0-0.8); MONO % 10.2 % (0.0-5.0); NEUTROPHILS # 7.2 10^3/uL (1.8-7.7); NEUTROPHILS % 66.2 % (36.0-66.0); PLATELET COUNT, AUTOMATED 191 10^3/uL (150-450); RED BLOOD COUNT 4.58 10^6/uL (4.30-6.10); RED CELL DISTRIBUTION WIDTH 13.3 % (11.5-14.5); WHITE BLOOD COUNT 10.9 10^3/uL (4.0-10.0)
[2017-12-31] MEDS: diphenhydrAMINE INJ 50MG/ML VIAL (J1200) IV (14:34)
[2017-12-31 14:57] LABS: ALBUMIN 3.5 GM/DL (3.2-5.2); ALBUMIN/GLOBULIN RATIO 0.95 (1.00-1.93); ALKALINE PHOSPHATASE 110 U/L (45-117); ALT/SGPT 35 U/L (12-78); ANION GAP 6 MEQ/L (8-16); AST/SGOT 21 U/L (7-37); BILIRUBIN,DIRECT 0.1 MG/DL (0.0-0.2); BILIRUBIN,TOTAL 0.4 MG/DL (0.2-1.0); BLOOD UREA NITROGEN 6 MG/DL (7-18); CALCIUM LEVEL 8.6 MG/DL (8.5-10.1); CARBON DIOXIDE LEVEL 29 MEQ/L (21-32); CHLORIDE LEVEL 107 MEQ/L (98-107); CPK CREATINE PHOSPHOKINASE 110 U/L (39-308); CREATININE FOR GFR 0.62 MG/DL (0.70-1.30); ETHYL ALCOHOL (ETHANOL) 0.006 % (0.000-0.010); GLOMERULAR FILTRATION RATE > 60.0 (>60); GLUCOSE, FASTING 80 MG/DL (70-100); POTASSIUM SERUM 4.5 MEQ/L (3.5-5.1); SALICYLATE LEVEL 2.1 MG/DL (5.0-30.0); SODIUM LEVEL 142 MEQ/L (136-145); TOTAL PROTEIN 7.2 GM/DL (6.4-8.2); TROPONIN I < 0.02 NG/ML (< 0.10)
[2017-12-31 14:58] LABS: ACETAMINOPHEN LEVEL < 2.0 UG/ML (10.0-30.0)
[2017-12-31 15:02] LABS: CK-MB VALUE MASS 1.2 NG/ML (<3.6); MB/CK RELATIVE INDEX 1.09 (< OR =4); THYROID STIMULATING HORMONE 0.713 uIU/ML (0.358-3.740)
[2017-12-31 15:12] LABS: AMPHETAMINES LEVEL URINE NEGATIVE (NEGATIVE); BARBITURATES URINE NEGATIVE (NEGATIVE); BENZODIAZEPINES URINE NEGATIVE (NEGATIVE); CANNABINOIDS URINE NEGATIVE (NEGATIVE); COCAINE METABOLITE URINE NEGATIVE (NEGATIVE); METHADONE URINE NEGATIVE (NEGATIVE); OPIATES URINE NEGATIVE (NEGATIVE); PHENCYCLIDINE URINE NEGATIVE (NEGATIVE)
== END 2017-12-31 16:10 | disposition home or self-care (01) ==
LOC: M ED 12:55
DX: G43.909 Migraine, unspecified, not intractable, without status migrainosus (principal); I10 Essential (primary) hypertension; E11.9 Type 2 diabetes mellitus without complications; F17.200 Nicotine dependence, unspecified, uncomplicated; Z82.49 Family history of ischemic heart disease and other diseases of the circulatory system; Z82.3 Family history of stroke; Z88.8 Allergy status to other drugs, medicaments and biological substances; Z88.0 Allergy status to penicillin; Z91.018 Allergy to other foods
CPT/HCPCS: J1200

== ENCOUNTER → 2018-01-07 | Outpatient (CLI) | payer OTHER | LOC: M LAB 15:17 | DX: I10 Essential (primary) hypertension (principal) ==

== ENCOUNTER → 2018-01-07 | Outpatient (REF) | payer OTHER ==
[2018-01-07 16:19] LABS: AMORPHOUS SEDIMENT SMALL (NEGATIVE); APPEARANCE, URINE CLOUDY (CLEAR); BACTERIA, URINE AUTO NEGATIVE (NEGATIVE); BILIRUBIN, URINE AUTO NEGATIVE (NEGATIVE); BLOOD, URINE BLOOD NEGATIVE (NEGATIVE); COLOR, URINE AMBER (YELLOW); GLUCOSE, URINE (UA) AUTO NEGATIVE (NEGATIVE); KETONE, URINE AUTO TRACE mg/dL (NEGATIVE); LEUKOCYTE ESTERASE, URINE AUTO NEGATIVE (NEGATIVE); MUCUS, URINE SMALL (NEGATIVE); NITRITE, URINE AUTO NEGATIVE (NEGATIVE); PROTEIN, URINE AUTO NEGATIVE (NEGATIVE); RBC, URINE AUTO 3 /HPF (0-3); SPECIFIC GRAVITY URINE AUTO 1.025 (1.002-1.035); SQUAMOUS EPITHELIAL CELL UR AU 1 /HPF (0-6); WBC, URINE AUTO 1 /HPF (0-3)
[2018-01-07 16:45] LABS: MALB URINE SIEMENS 99.1 MG/L; MAU/CREAT RATIO 39.7 MCG/MG (0.0-30.0)
[2018-01-10 15:40] LABS: AMPHETAMINE SCREEN, URINE Negative ng/mL (Cutoff=1000); BARBITURATES SCREEN, URINE Negative ng/mL (Cutoff=200); BENZODIAZEPINES, URINE SCREEN Negative ng/mL (Cutoff=200); CANNABINOID SCREEN, URINE Negative ng/mL (Cutoff=20); COCAINE SCREEN, URINE Negative ng/mL (Cutoff=300); CREATININE, URINE 205.8 mg/dL (20.0-300.0); FENTANYL URINE SCREEN Negative pg/mL (Cutoff=2000); METHADONE, URINE SCREEN Negative ng/mL (Cutoff=300); OPIATE SCREEN, URINE Negative ng/mL (Cutoff=300); OXYCODONE, SCREEN, URINE Negative ng/mL (Cutoff=100); PCP SCREEN, URINE Negative ng/mL (Cutoff=25); SPECIFIC GRAVITY, URINE 1.032 (.); pH, URINE 5.4 (4.5-8.9)
== END ==
LOC: M SFHCPLAZ 14:28
DX: I10 Essential (primary) hypertension (principal); G89.4 Chronic pain syndrome

== ENCOUNTER 2018-01-24 10:25 | Outpatient (CLI) | payer OTHER ==
[~2018-01-24 10:25] MED LIST changes: -/HCTZ25TA PO; -/IPRA3SP; -ALB2.5NEB INH; -AMLO5TAB2 PO; -ASPI1TAB15; -ASPI81TA45 PO; -ATIV0.5T3 PO; -BACL10TA2; -BACL10TA2 PO; -BACT800T5 PO; -BACTRIM DS PO; -BENZ200C53; -CLOP75TA2; -DIAZ10GE PR; -DIAZ20GE PO; -DUO NEB; -FURO20TA2 PO; -GABA-282; -GABA-282 PO; -GABA300C2 PO; -IPRA2IN INH; -IPRASOL4 INH; -LEVO750T PO; -LISI-538 PO; -LISI20TA PO; -LISI5TAB PO; -MAGN500C PO; -MECL-68 PO; -MEDR4PAK PO; -META800T82 PO; -NICO4GUM8 PO; -NICO4LOZ8 MT; -ONDA4TAB5 PO; -OXYC1TAB23 PO; -PANT40TA2; -PANT40TA2 PO; -PEPT262T2 PO; -PERC5TAB12 PO; -PERCOCET PO; -PLAV1TAB2 PO; -PRAV80TA2 PO; -PRED10TA PO; -PRED20TA PO; -PROAAER IN; -Q PA PO; +SODIUM CHLORIDE 0.9% INJ 10 ML SYR IV; -VALI10TA PO; -VALI2TAB PO; -VITA200028 PO; -VITA200038 PO; -VITA500T PO; -XARE10TA PO; -XARE20TA; -XARE20TA PO; -ZITH250T PO; -[UNRECOGNIZED DRUG - CODE] PO; -[UNRECOGNIZED DRUG - CODE] PO; -[UNRECOGNIZED DRUG - CODE] SL; -albuterol INH; -prednisone PO
[2018-01-24 11:19] LABS: BASO # 0.1 10^3/uL (0.0-0.2); BASO % 0.6 % (0.0-1.0); EOS # 0.1 10^3/uL (0.0-0.50); EOS % 0.8 % (0.0-3.0); HEMATOCRIT 43.3 % (42.0-52.0); HEMOGLOBIN 14.6 g/dl (13.5-17.5); IMMATURE GRANULOCYTE % 0.5 % (0-3.0); LYMPH # 2.9 10^3/uL (1.5-4.5); MEAN CORPUSCULAR HEMOGLOBIN 31.3 pg (27.0-33.0); MEAN CORPUSCULAR HGB CONC 33.7 g/dl (32.0-36.5); MEAN CORPUSCULAR VOLUME 92.7 fl (80.0-96.0); MONO # 1.2 10^3/uL (0.0-0.8); MONO % 11.5 % (0.0-5.0); NEUTROPHILS % 58.6 % (36.0-66.0); PLATELET COUNT, AUTOMATED 204 10^3/uL (150-450); RED BLOOD COUNT 4.67 10^6/uL (4.30-6.10); RED CELL DISTRIBUTION WIDTH 13.1 % (11.5-14.5); WHITE BLOOD COUNT 10.2 10^3/uL (4.0-10.0)
[2018-01-24 11:28] LABS: INR 1.09; PROTHROMBIN TIME 14.2 SECONDS (12.1-14.4)
[2018-01-24 11:29] LABS: PARTIAL THROMBOPLASTIN TIME 31.8 SECONDS (25.4-37.6)
[2018-01-24 11:41] LABS: ESTIMATED AVERAGE GLUCOSE 103 MG/DL (60-110); HEMOGLOBIN A1c 5.2 %
[2018-01-24 11:54] LABS: PTH INTACT 71.9 PG/ML (18.5-88.0)
[2018-01-24 12:17] LABS: CHOLESTEROL LEVEL 266 MG/DL (<200); CHOLESTEROL RISK RATIO 5.018 (<5); HDL CHOLESTEROL 53 MG/DL (>40); NON-HDL-C 213 MG/DL; TRIGLYCERIDES LEVEL 70 MG/DL (<150)
[2018-01-24 12:33] LABS: ALBUMIN 3.6 GM/DL (3.2-5.2); ALBUMIN/GLOBULIN RATIO 0.88 (1.00-1.93); ALKALINE PHOSPHATASE 104 U/L (45-117); ALT/SGPT 43 U/L (12-78); ANION GAP 7 MEQ/L (8-16); AST/SGOT 23 U/L (7-37); BILIRUBIN,TOTAL 0.6 MG/DL (0.2-1.0); BLOOD UREA NITROGEN 11 MG/DL (7-18); CALCIUM LEVEL 8.9 MG/DL (8.5-10.1); CARBON DIOXIDE LEVEL 29 MEQ/L (21-32); CHLORIDE LEVEL 104 MEQ/L (98-107); CREATININE FOR GFR 0.77 MG/DL (0.70-1.30); GLOMERULAR FILTRATION RATE > 60.0 (>60); GLUCOSE, FASTING 102 MG/DL (70-100); POTASSIUM SERUM 4.3 MEQ/L (3.5-5.1); SODIUM LEVEL 140 MEQ/L (136-145); TOTAL PROTEIN 7.7 GM/DL (6.4-8.2)
== END 2018-01-24 11:30 | disposition home or self-care (01) ==
LOC: M INFU 10:25
DX: G61.0 Guillain-Barre syndrome (principal); G89.4 Chronic pain syndrome; I10 Essential (primary) hypertension; E78.5 Hyperlipidemia, unspecified; Z13.228 Encounter for screening for other metabolic disorders; E55.9 Vitamin D deficiency, unspecified; Z79.01 Long term (current) use of anticoagulants; Z79.891 Long term (current) use of opiate analgesic; Z79.899 Other long term (current) drug therapy; Z88.0 Allergy status to penicillin; Z88.8 Allergy status to other drugs, medicaments and biological substances; Z91.018 Allergy to other foods
CPT/HCPCS: 36591

== ENCOUNTER 2018-02-24 22:49 | Emergency (ER) | payer OTHER ==
[2018-02-25] MEDS: NITROGLYCERIN 0.4 MG SUBL TABLET SL (00:43)
[2018-02-25] MEDS: ASPIRIN 81 MG CHEW TABLET PO (00:43)
[2018-02-25 00:46] LABS: BASO # 0.1 10^3/uL (0.0-0.2); BASO % 0.7 % (0.0-1.0); EOS # 0.2 10^3/uL (0.0-0.50); HEMATOCRIT 43.5 % (42.0-52.0); HEMOGLOBIN 14.5 g/dl (13.5-17.5); IMMATURE GRANULOCYTE % 0.5 % (0-3.0); LYMPH % 28.3 % (24.0-44.0); MEAN CORPUSCULAR HEMOGLOBIN 31.3 pg (27.0-33.0); MEAN CORPUSCULAR HGB CONC 33.3 g/dl (32.0-36.5); MONO # 1.2 10^3/uL (0.0-0.8); MONO % 10.9 % (0.0-5.0); NEUTROPHILS # 6.1 10^3/uL (1.8-7.7); NEUTROPHILS % 57.6 % (36.0-66.0); PLATELET COUNT, AUTOMATED 188 10^3/uL (150-450); RED BLOOD COUNT 4.63 10^6/uL (4.30-6.10); RED CELL DISTRIBUTION WIDTH 13.3 % (11.5-14.5); WHITE BLOOD COUNT 10.6 10^3/uL (4.0-10.0)
[2018-02-25 00:55] LABS: INR 0.97
[2018-02-25 00:56] LABS: PARTIAL THROMBOPLASTIN TIME 29.6 SECONDS (25.4-37.6)
[2018-02-25 01:14] LABS: ALBUMIN 3.3 GM/DL (3.2-5.2); ALBUMIN/GLOBULIN RATIO 0.73 (1.00-1.93); ALKALINE PHOSPHATASE 116 U/L (45-117); ALT/SGPT 34 U/L (12-78); ANION GAP 7 MEQ/L (8-16); AST/SGOT 23 U/L (7-37); BILIRUBIN,DIRECT < 0.1 MG/DL (0.0-0.2); BILIRUBIN,TOTAL 0.3 MG/DL (0.2-1.0); BLOOD UREA NITROGEN 13 MG/DL (7-18); CALCIUM LEVEL 8.9 MG/DL (8.5-10.1); CARBON DIOXIDE LEVEL 29 MEQ/L (21-32); CHLORIDE LEVEL 102 MEQ/L (98-107); CK-MB VALUE MASS < 1.0 NG/ML (<3.6); CPK CREATINE PHOSPHOKINASE 196 U/L (39-308); CREATININE FOR GFR 0.86 MG/DL (0.70-1.30); GLOMERULAR FILTRATION RATE > 60.0 (>60); GLUCOSE, FASTING 92 MG/DL (70-100); LIPASE 78 U/L (73-393); MB/CK RELATIVE INDEX 0.51 (< OR =4); SODIUM LEVEL 138 MEQ/L (136-145); TOTAL PROTEIN 7.8 GM/DL (6.4-8.2); TROPONIN I < 0.02 NG/ML (< 0.10)
[2018-02-25] MEDS ORDERED: ISOVUE-370 76% 100ML VIAL (Q9967) As Ordered (01:43)
[2018-02-25] MEDS: MORPHINE 4 MG/ML 1ML VIAL/SYRINGE (J2270) IV ×2 (02:14→03:01)
[2018-02-25] MEDS: PERCOCET 5MG/325MG TAB PO (05:02)
[2018-02-25 05:32] LABS: CK-MB VALUE MASS 1.2 NG/ML (<3.6); CPK CREATINE PHOSPHOKINASE 214 U/L (39-308); MB/CK RELATIVE INDEX 0.56 (< OR =4); TROPONIN I < 0.02 NG/ML (< 0.10)
== END 2018-02-25 06:26 | disposition home or self-care (01) ==
LOC: M ED 02-25 06:26
DX: R07.9 Chest pain, unspecified (principal); I10 Essential (primary) hypertension; E78.5 Hyperlipidemia, unspecified; J45.909 Unspecified asthma, uncomplicated; G43.909 Migraine, unspecified, not intractable, without status migrainosus; F41.9 Anxiety disorder, unspecified; F17.200 Nicotine dependence, unspecified, uncomplicated; Z98.61 Coronary angioplasty status
CPT/HCPCS: J2270

== ENCOUNTER 2018-05-06 09:10 | Emergency (ER) | payer OTHER ==
[2018-05-06] MEDS: PERCOCET 5MG/325MG TAB PO ×2 (10:07→12:11)
[2018-05-06 11:11] LABS: BASO % 0.6 % (0.0-1.0); EOS # 0.2 10^3/uL (0.0-0.50); EOS % 2.3 % (0.0-3.0); HEMATOCRIT 39.8 % (42.0-52.0); HEMOGLOBIN 12.9 g/dl (13.5-17.5); IMMATURE GRANULOCYTE % 0.4 % (0-3.0); LYMPH # 1.9 10^3/uL (1.5-4.5); LYMPH % 26.6 % (24.0-44.0); MEAN CORPUSCULAR HGB CONC 32.4 g/dl (32.0-36.5); MEAN CORPUSCULAR VOLUME 95.7 fl (80.0-96.0); MONO # 0.8 10^3/uL (0.0-0.8); MONO % 11.6 % (0.0-5.0); NEUTROPHILS # 4.3 10^3/uL (1.8-7.7); NEUTROPHILS % 58.5 % (36.0-66.0); PLATELET COUNT, AUTOMATED 169 10^3/uL (150-450); RED BLOOD COUNT 4.16 10^6/uL (4.30-6.10); RED CELL DISTRIBUTION WIDTH 13.4 % (11.5-14.5); WHITE BLOOD COUNT 7.3 10^3/uL (4.0-10.0)
[2018-05-06 11:47] LABS: ANION GAP 7 MEQ/L (8-16); BLOOD UREA NITROGEN 7 MG/DL (7-18); C REACTIVE PROTEIN QUANTITATIV < 0.30 MG/DL (0.00-0.30); CALCIUM LEVEL 8.8 MG/DL (8.5-10.1); CARBON DIOXIDE LEVEL 32 MEQ/L (21-32); CHLORIDE LEVEL 102 MEQ/L (98-107); CPK CREATINE PHOSPHOKINASE 187 U/L (39-308); CREATININE FOR GFR 0.69 MG/DL (0.70-1.30); GLOMERULAR FILTRATION RATE > 60.0 (>60); GLUCOSE, FASTING 103 MG/DL (70-100); MB/CK RELATIVE INDEX 1.07 (< OR =4); NT-PRO BNP 138 PG/ML (<125); POTASSIUM SERUM 4.1 MEQ/L (3.5-5.1); SODIUM LEVEL 141 MEQ/L (136-145); TROPONIN I < 0.02 NG/ML (< 0.10)
[2018-05-06 11:49] LABS: ERYTHROCYTE SEDIMENTATION RATE 26 mm/hr (0-15)
== END 2018-05-06 12:32 | disposition home or self-care (01) ==
LOC: M ED 09:10
DX: M54.9 Dorsalgia, unspecified (principal); E66.01 Morbid (severe) obesity due to excess calories; I50.9 Heart failure, unspecified; I25.2 Old myocardial infarction; I10 Essential (primary) hypertension; F41.9 Anxiety disorder, unspecified; F90.9 Attention-deficit hyperactivity disorder, unspecified type; N18.9 Chronic kidney disease, unspecified; G61.0 Guillain-Barre syndrome; M85.871 Other specified disorders of bone density and structure, right ankle and foot; M51.36 Other intervertebral disc degeneration, lumbar region; Z45.2 Encounter for adjustment and management of vascular access device; Z72.0 Tobacco use; Z79.82 Long term (current) use of aspirin; Z79.899 Other long term (current) drug therapy; Z88.6 Allergy status to analgesic agent; Z88.0 Allergy status to penicillin; Z88.8 Allergy status to other drugs, medicaments and biological substances; Z91.018 Allergy to other foods
CPT/HCPCS: 71046

== ENCOUNTER 2018-05-24 02:54 | Emergency (ER) | payer OTHER ==
[2018-05-24] MEDS: IPRATROPIUM 0.5MG/ALBUTEROL 2.5MG INH SOL UD 3ML (DUONEB)(J7620) NEB ×2 (03:54→04:29)
[2018-05-24] MEDS: dexameTHASONE 20 MG/5 ML VIAL (J1100) IM (03:55)
== END 2018-05-24 05:31 | disposition home or self-care (01) ==
LOC: M ED 02:54
DX: J44.9 Chronic obstructive pulmonary disease, unspecified (principal); I10 Essential (primary) hypertension; E78.5 Hyperlipidemia, unspecified; G61.0 Guillain-Barre syndrome; F11.20 Opioid dependence, uncomplicated; F17.200 Nicotine dependence, unspecified, uncomplicated; Z88.0 Allergy status to penicillin; Z91.018 Allergy to other foods; Z88.8 Allergy status to other drugs, medicaments and biological substances; Z88.6 Allergy status to analgesic agent; Z79.899 Other long term (current) drug therapy; Z79.82 Long term (current) use of aspirin; Z79.02 Long term (current) use of antithrombotics/antiplatelets; Z79.51 Long term (current) use of inhaled steroids
CPT/HCPCS: J1100

== ENCOUNTER 2018-05-30 02:01 | Emergency (ER) | payer OTHER ==
[2018-05-30 03:27] LABS: BASO % 0.3 % (0.0-1.0); EOS # 0.1 10^3/uL (0.0-0.50); EOS % 1.6 % (0.0-3.0); HEMATOCRIT 23.8 % (42.0-52.0); HEMOGLOBIN 7.6 g/dl (13.5-17.5); IMMATURE GRANULOCYTE % 1.4 % (0-3.0); LYMPH % 26.4 % (24.0-44.0); MEAN CORPUSCULAR HEMOGLOBIN 31.5 pg (27.0-33.0); MEAN CORPUSCULAR HGB CONC 31.9 g/dl (32.0-36.5); MEAN CORPUSCULAR VOLUME 98.8 fl (80.0-96.0); MONO # 0.7 10^3/uL (0.0-0.8); MONO % 9.1 % (0.0-5.0); NEUTROPHILS # 4.7 10^3/uL (1.8-7.7); NEUTROPHILS % 61.2 % (36.0-66.0); PLATELET COUNT, AUTOMATED 102 10^3/uL (150-450); RED BLOOD COUNT 2.41 10^6/uL (4.30-6.10); RED CELL DISTRIBUTION WIDTH 13.2 % (11.5-14.5); WHITE BLOOD COUNT 7.7 10^3/uL (4.0-10.0)
[2018-05-30 03:51] LABS: LACTIC ACID SEPSIS PROTOCOL 1.1 MMOL/L (0.4-2.0)
[2018-05-30 03:56] LABS: ANION GAP 3 MEQ/L (8-16); BLOOD UREA NITROGEN 7 MG/DL (7-18); CALCIUM LEVEL 8.6 MG/DL (8.5-10.1); CARBON DIOXIDE LEVEL 33 MEQ/L (21-32); CHLORIDE LEVEL 101 MEQ/L (98-107); CREATININE FOR GFR 0.82 MG/DL (0.70-1.30); GLOMERULAR FILTRATION RATE > 60.0 (>60); GLUCOSE, FASTING 120 MG/DL (70-100); NT-PRO BNP 12 PG/ML (<125); POTASSIUM SERUM 3.9 MEQ/L (3.5-5.1); SODIUM LEVEL 137 MEQ/L (136-145)
[2018-05-30] MEDS: ONDANSETRON 4MG/2ML VIAL (J2405) IV (04:15)
[2018-05-30] MEDS: HYDROMORPHONE HCL 0.5 MG/ 0.5 ML SYRINGE (J1170 PER 1) IV ×2 (04:20→05:27)
[2018-05-30 04:25] LABS: C REACTIVE PROTEIN QUANTITATIV 0.31 MG/DL (0.00-0.30)
[2018-05-30] MEDS: IPRATROPIUM 0.5MG/ALBUTEROL 2.5MG INH SOL UD 3ML (DUONEB)(J7620) NEB (05:20)
[2018-05-30] MEDS: DOXYCYCLINE HYCLATE 100 MG TAB PO (06:00)
[2018-05-30] MEDS: PERCOCET 5MG/325MG TAB PO (06:00)
== END 2018-05-30 06:31 | disposition home or self-care (01) ==
LOC: M ED 02:01
DX: L03.115 Cellulitis of right lower limb (principal); J44.9 Chronic obstructive pulmonary disease, unspecified; I50.9 Heart failure, unspecified; I25.10 Atherosclerotic heart disease of native coronary artery without angina pectoris; Z79.899 Other long term (current) drug therapy; Z79.82 Long term (current) use of aspirin; Z79.02 Long term (current) use of antithrombotics/antiplatelets; Z88.0 Allergy status to penicillin; Z88.8 Allergy status to other drugs, medicaments and biological substances; Z91.018 Allergy to other foods; F17.210 Nicotine dependence, cigarettes, uncomplicated
CPT/HCPCS: J2405

== ENCOUNTER 2018-05-30 07:35 | Emergency (ER) | payer OTHER ==
[2018-05-30 08:50] LABS: BASO # 0.1 10^3/uL (0.0-0.2); BASO % 0.7 % (0.0-1.0); EOS # 0.2 10^3/uL (0.0-0.50); EOS % 1.5 % (0.0-3.0); HEMATOCRIT 41.6 % (42.0-52.0); IMMATURE GRANULOCYTE % 1.2 % (0-3.0); LYMPH # 3.3 10^3/uL (1.5-4.5); LYMPH % 26.9 % (24.0-44.0); MEAN CORPUSCULAR HGB CONC 32.5 g/dl (32.0-36.5); MEAN CORPUSCULAR VOLUME 95.4 fl (80.0-96.0); MONO % 7.9 % (0.0-5.0); NEUTROPHILS # 7.5 10^3/uL (1.8-7.7); NEUTROPHILS % 61.8 % (36.0-66.0); PLATELET COUNT, AUTOMATED 179 10^3/uL (150-450); RED BLOOD COUNT 4.36 10^6/uL (4.30-6.10); RED CELL DISTRIBUTION WIDTH 13.2 % (11.5-14.5); WHITE BLOOD COUNT 12.1 10^3/uL (4.0-10.0)
[2018-05-30 09:02] LABS: HEMOGLOBIN 13.5 g/dl (13.5-17.5)
[2018-05-30 09:15] LABS: ALBUMIN 3.4 GM/DL (3.2-5.2); ALBUMIN/GLOBULIN RATIO 0.87 (1.00-1.93); ALKALINE PHOSPHATASE 111 U/L (45-117); ALT/SGPT 54 U/L (12-78); ANION GAP 5 MEQ/L (8-16); AST/SGOT 28 U/L (7-37); BILIRUBIN,DIRECT < 0.1 MG/DL (0.0-0.2); BILIRUBIN,TOTAL 0.4 MG/DL (0.2-1.0); BLOOD UREA NITROGEN 7 MG/DL (7-18); CALCIUM LEVEL 8.8 MG/DL (8.5-10.1); CARBON DIOXIDE LEVEL 32 MEQ/L (21-32); CHLORIDE LEVEL 98 MEQ/L (98-107); CPK CREATINE PHOSPHOKINASE 218 U/L (39-308); CREATININE FOR GFR 0.86 MG/DL (0.70-1.30); GLOMERULAR FILTRATION RATE > 60.0 (>60); GLUCOSE, FASTING 106 MG/DL (70-100); MB/CK RELATIVE INDEX 1.01 (< OR =4); SODIUM LEVEL 135 MEQ/L (136-145); TOTAL PROTEIN 7.3 GM/DL (6.4-8.2); TROPONIN I < 0.02 NG/ML (< 0.10)
[2018-05-30 09:30] LABS: PROTHROMBIN TIME 12.3 SECONDS (12.1-14.4)
[2018-05-30 09:31] LABS: PARTIAL THROMBOPLASTIN TIME 23.8 SECONDS (25.4-37.6)
[2018-05-30] MEDS: SODIUM CHLORIDE 0.9% INJ 10 ML SYR IV (10:17)
== END 2018-05-30 10:18 | disposition home or self-care (01) ==
LOC: M ED 07:35
DX: J44.9 Chronic obstructive pulmonary disease, unspecified (principal); L03.116 Cellulitis of left lower limb; I25.10 Atherosclerotic heart disease of native coronary artery without angina pectoris; G61.0 Guillain-Barre syndrome; G47.30 Sleep apnea, unspecified; Z79.899 Other long term (current) drug therapy; Z79.82 Long term (current) use of aspirin; Z79.02 Long term (current) use of antithrombotics/antiplatelets; Z88.0 Allergy status to penicillin; Z88.8 Allergy status to other drugs, medicaments and biological substances; Z91.018 Allergy to other foods; F17.210 Nicotine dependence, cigarettes, uncomplicated
CPT/HCPCS: 93005

== ENCOUNTER 2018-06-15 19:49 | Emergency (ER) | payer OTHER ==
[2018-06-15] MEDS: METHOCARBAMOL 750 MG TAB PO (21:20)
== END 2018-06-15 21:26 | disposition home or self-care (01) ==
LOC: M ED 21:26
DX: M79.18 Myalgia, other site (principal); I10 Essential (primary) hypertension; J44.9 Chronic obstructive pulmonary disease, unspecified; I25.10 Atherosclerotic heart disease of native coronary artery without angina pectoris; E78.5 Hyperlipidemia, unspecified; Z95.5 Presence of coronary angioplasty implant and graft; Z79.891 Long term (current) use of opiate analgesic; Z79.899 Other long term (current) drug therapy; Z79.82 Long term (current) use of aspirin; Z88.0 Allergy status to penicillin; Z88.8 Allergy status to other drugs, medicaments and biological substances; Z91.018 Allergy to other foods; F17.210 Nicotine dependence, cigarettes, uncomplicated
CPT/HCPCS: 99283